=== PATIENT | male | born 1960 | race Caucasian/White ===

== ENCOUNTER 2019-10-19 23:40 | Inpatient (IN) | payer MEDICARE, SELFPAY ==
[2019-10-20] VITALS (23 sets, daily range): BP systolic 120–186; BP diastolic 75–133; PULSE 76–138; RESP 16–26; TEMP 36.6–37.1; O2SAT 91–100; BMI 24.8
[2019-10-20] MEDS: morphine 4 mg/mL SDV 1 mL IVP (05:29)
[2019-10-20] MEDS: sodium chloride 0.9% 1,000 ML 75 ML IV (05:30)
--- NOTE | 2019-10-20 07:59 | PM.HP ---
Providers/Chief Complaint Admitting Physician: Hira Madrigal MD Primary Care Provider: Alan Mcdonald MD Chief Complaint: APPENDICITIS History of Present Illness Stephan Boston is a 58 year old male who presented to the ER yesterday with weakness. Patient stated been having abdominal pain for the last 2 weeks but denies any nausea, vomiting fevers or chills. Patient states that he is incontinent and has had some loose stools. Patient also self catheterizes. He had a CVA at the age of 25 and has had multiple back surgeries resulting in limited mobility. Patient is not able to ambulate and use a motorized wheelchair. Review of Systems Const: Denies: fever, chills, change in weight or fatigue ENMT: Denies: painful swallowing Card: Denies: chest pain Resp: Denies: shortness of breath GI: Denies: abdominal pain or blood in stool : Denies: painful urination Skin/Breast: Denies: rash or non-healing lesion Neuro: Denies: seizure-like activity Xu/Lymph: Denies: easy bruising Medications/Allergies Home Medications Medication Instructions Recorded Confirmed Last Taken Type ascorbic acid (vitamin C) [Vitamin 1 g PO BID 10/20/19 10/20/19 1 Day Ago History C] ~10/19/19 baclofen 10 mg PO TID 10/20/19 10/20/19 1 Day Ago History ~10/19/19 furosemide [Lasix] 20 mg PO DAILY 10/20/19 10/20/19 1 Day Ago History ~10/19/19 gabapentin 600 mg PO TID 10/20/19 10/20/19 1 Day Ago History ~10/19/19 hydrocodone-acetaminophen 1 tab PO Q6H PRN 10/20/19 10/20/19 Unknown History lisinopril 10/20/19 1 Day Ago History ~10/19/19 unknown methenamine hippurate 1 g PO BID 10/20/19 10/20/19 1 Day Ago History ~10/19/19 Allergies Allergy/AdvReac Type Severity Reaction Status Date / Time Penicillins Allergy ALGY-Rash Verified 10/20/19 02:14 PFSH Acute PFSH: Statuses (acute, chronic, etc) shown below reflect problem list status as previously entered and may not be historically accurate Medical History (Updated 10/20/19 @ 10:31 by Hira Madrigal MD) Hepatitis C (Acute) Left ureteral calculus (Acute) Neurogenic bladder (Acute) Pyelonephritis (Acute) Self-catheterizes urinary bladder (Inactive) Urinary bladder calculus (Acute) Surgical History (Updated 10/20/19 @ 10:31 by Hira Madrigal MD) H/O cervical spine surgery (Acute) S/P lumbar fusion (Acute) S/P ureteral stent placement (Acute) Social History (Updated 10/20/19 @ 08:40 by Hira Madrigal MD) Smoking and tobacco status: heavy tobacco smoker cigarettes Packs smoked per day: 1.5 Alcohol intake: current Alcohol intake frequency: 0-2 Drinks per Day Alcohol type: beer Counseling given: Yes Substance/Drug Use: current Substance/Drug use frequency: few times a week Substance/Drug use type: Marijuana Counseling given: Yes Vitals/I&O/Wt Last Vital Signs Temp 98.5 F 10/20/19 05:36 Pulse 84 10/20/19 05:36 Resp 18 10/20/19 05:36 BP 133/75 10/20/19 05:36 Pulse Ox 95 10/20/19 05:36 10/19/19 10/20/19 10/20/19 22:59 06:59 14:59 Intake Total 32.5 / 32.5 Balance 32.5 / 32.5 Weight last 48 hrs Weight 71.809 kg Weight 69.853 kg Physical Exam Const: COMMON NORMALS: no apparent distress ORIENTATION/CONSCIOUSNESS: Yes oriented to person, Yes oriented to place and Yes oriented to time HENMT: HEAD & SCALP: normocephalic Eye: GENERAL EYE: normal appearance of both eyes Resp: AUSCULTATION: clear to auscultation bilaterally Cardio: COMMON NORMALS: S1 normal heart sound and S2 normal heart sound GI: INSPECTION: Yes other (Incarcerated umbilical hernia, nontender) PALPATION: Yes tender Details: RLQ and Yes hernia Neuro: SENSORIUM/ORIENTATION: Yes oriented to person, Yes oriented to place and Yes oriented to time Skin: COMMON NORMALS: no rashes or lesions noted GENERAL SKIN EXAM: no rashes or lesions noted Data Imaging^: CT Abd/Pel: Radiologist's impression: PROCEDURE INFORMATION: Exam: CT Abdomen And Pelvis With Contrast Exam date and time: 10/19/2019 9:22 PM Age: 58 years old Clinical indication: Other: Weakness; Prior surgery; Additional info: Abdominal pain TECHNIQUE: Imaging protocol: Computed tomography of the abdomen and pelvis with intravenous contrast. Total DLP: 756.91 mGy-cm Radiation optimization: All CT scans at this facility use at least one of these dose optimization techniques: automated exposure control; mA and/or kV adjustment per patient size (includes targeted exams where dose is matched to clinical indication); or iterative reconstruction. Contrast material: VISI; Contrast volume: 95 ml; Contrast route: IV; COMPARISON: CT Abdomen/Pelvis [facility] [id number] 02/16/2019 12:47 PM FINDINGS: Mediastinum: A small hiatal hernia is present. Liver: Unremarkable.No mass. Gallbladder and bile ducts: Normal. No calcified stones. No ductal dilation. Pancreas: Normal. No ductal dilation. Spleen: Normal. No splenomegaly. Adrenals: Normal. No mass. Kidneys and ureters: There is a 1.5 cm fluid density cyst lower pole left kidney. Stomach and bowel: Unremarkable. No obstruction. No mucosal thickening. Appendix: The appendix demonstrates marked diffuse distention, consistent with severe acute appendicitis. There is a periappendiceal abscess with marked adjacent wall thickening and inflammatory changes. Air bubbles are noted within the collection that measures 3.6 x 2.8 by 5.0 cm in size. This is best seen on image 50. Intraperitoneal space: No free air. No additional abscess. Vasculature: Unremarkable.No abdominal aortic aneurysm. Lymph nodes: Unremarkable.No enlarged lymph nodes. Bladder: There is nonspecific bladder wall thickening. This may be related to incomplete distention. Reproductive: Unremarkable as visualized. Bones/joints: Postoperative changes in the lower lumbar spine are noted. There is scoliosis convex to the left. Soft tissues: There are bilateral fat filled inguinal hernias. IMPRESSION: 1. Acute appendicitis. 2. Periappendiceal abscess. A&P Assessment and plan (1) Acute perforated appendicitis: This is a 58-year-old gentleman with history of CVA limited mobility who presents with generalized weakness and abdominal pain. His white count is normal but CT scan showed fluid collection adjacent to the appendix concerning for perforated appendicitis with appendicular abscess. 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
--- NOTE | 2019-10-20 09:48 | ANES.PREANES ---
Pre-Anesthetic Assessment Pre-Anesthetic Assessment: Height/Weight: Height 1.68 m Weight 71.809 kg Temp Pulse Resp BP Pulse Ox 97.8 F 81 16 163/96 93 10/20/19 09:39 10/20/19 09:39 10/20/19 09:39 10/20/19 09:39 10/20/19 09:39 Proposed Procedure: Operation Date: 10/20/19 10:00 Proposed Procedures p Laparoscopic Appendectomy(Not Applicable) - Hira Madrigal MD Social: Social History: Alcohol and Tobacco Exam: Pre-Anes Outpt Exam: alert, oriented x 3, clear to auscultation bilaterally and regular rate & rhythm Airway: Submandibular: WNL Cervical ROM: Other (very poor) MP: 3 Dentition: Chipped Additional comments: neck fusion : Comments: incontinent Musc/skel: Musc/skel: Lower Back Pain and Weakness Comments: 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 Anesthetic Plan: ASA status: III Anesthesia: General Risk of > 500 ml blood loss (7ml/kg in children): No Meds/Allergies Current Medications: Current Medications Generic Name Dose Route Start Last Admin Trade Name Freq PRN Reason Stop Dose Admin Sodium Chloride 1,000 mls @ 75 ml s/hr 10/20/19 02:15 10/20/19 05:56 Sodium Chloride 0.9% IV 75 mls/hr .[id number] LEENA Infusion Morphine Sulfate 4 mg 10/20/19 02:17 10/20/19 05:29 Morphine IVP 4 mg Q2H PRN Administration SEVERE PAIN PFSH Anesthesia PFSH: Medical History (Updated 10/20/19 @ 08:42 by Hira Madrigal MD) CVA (cerebral vascular accident) (Acute) Renal calculi (Acute) Surgical History (Updated 10/20/19 @ 08:42 by Hira Madrigal MD) Previous back surgery (Acute) Social History (Updated 10/20/19 @ 08:40 by Hira Madrigal MD) Smoking and tobacco status: heavy tobacco smoker cigarettes Packs smoked per day: 1.5 Alcohol intake: current Alcohol intake frequency: 0-2 Drinks per Day Alcohol type: beer Counseling given: Yes Substance/Drug Use: current Substance/Drug use frequency: few times a week Substance/Drug use type: Marijuana Counseling given: Yes Data Anesthesia Cardiac Studies: No Data to Display
[2019-10-20] MEDS: sodium chloride 0.9% 1,000 ML 30 ML IV (10:15)
[2019-10-20] MEDS: levofloxacin-dextrose 5 % 500 MG/100 ML PREMIX 100 MG IV (10:25)
[2019-10-20] MEDS: ipratropium 0.5 mg/2.5 mL Neb (11:53)
[2019-10-20] MEDS: fentaNYL 50 mcg/mL INJ 2mL IVP ×2 (12:14→12:19)
[2019-10-20] MEDS: ondansetron 2 mg/ML SDV 2 mL 4 MG IVP (12:14)
--- NOTE | 2019-10-20 12:28 | PM.OP ---
Operative Report Post-Operative Note: Date of procedure: 10/20/19 Preop Diagnosis: Acute perforated appendicitis with 5 cm intra-abdominal abscess Post-op diagnosis: same Post-op Findings: Base of the appendix was identified but the rest of the appendix could not be identified, adjacent intra-abdominal abscess identified Procedure Done: Laparoscopic appendectomy Drainage of intra-abdominal abscess Specimens removed/disposition: base of appendix Surgeon: Hira Madrigal Anesthesia: general Estimated blood loss (mL): 25 Condition: stable Disposition: PACU Operative Report: Procedure: The patient was taken to the Operating Room and intubated under general anesthesia after antibiotic had been administered. A Gallardo catheter was placed. Using a 15 blade, a 1-cm infraumbilical incision was made and using open Aneesh technique, the peritoneal cavity was entered. A 12mm port with balloon was placed and 14 mm of pneumoperitoneum was created and 10-mm 30 degree scope was introduced. Two separate 5mm ports were placed in the left and right lower quadrant under direct visualization. Using suction irrigation the cecum was gently peeled away from the abdominal wall and the ileum was peeled away. The base of the appendix was identified at the end of the tenia as the cecum was peeled away from the abdominal wall and rotated medially intra-abdominal abscess was identified and pus was aspirated.. An Endo FROYLAN stapler 45mm long 3.5mm blue load was introduced to divide the appendix at it's base. There was no bleeding noted and the staple line appeared intact. The right lower quadrant was irrigated with saline and an EndoCatch bag was introduced to remove the base of the appendix. A fecalith identified within the abscess cavity was also removed. Using 11 blade a stab incision was made in the right lower quadrant and a 10 Kiswahili flat LAUREN drain was introduced and placed in the abscess cavity and sutured with 2-0 Prolene suture. All three ports were removed under direct visualization and there was no bleeding noted on the port sites. The fascia at the umbilical port was closed using figure of eight 0-Vicryl sutures and subcutaneous tissue was approximated using 3-0 Vicryl and skin at all 3 port sites was closed using 4-0 Monocryl and surgical glue. 0.5% Marcaine was infiltrated at the port sites. The patient was transferred to recovery room in stable condition with a Gallardo catheter. 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
--- NOTE | 2019-10-20 13:30 | PM.PN ---
Vitals/I&O/Wt Last Vital Signs Temp 97.8 F 10/20/19 11:48 Pulse 135 H 10/20/19 11:48 Resp 16 10/20/19 11:48 BP 164/104 10/20/19 11:48 Pulse Ox 93 10/20/19 09:39 10/19/19 10/20/19 10/20/19 22:59 06:59 14:59 Intake Total 32.5 / 32.5 200 / 200 Output Total 1650 / 1650 Balance 32.5 / 32.5 -1450 / -1450 Weight last 48 hrs Weight 71.809 kg Weight 69.853 kg Physical Exam Urinary Catheter Management^: Gallardo: Cath Placed During This Visit: no A&P Assessment and plan (1) Acute perforated appendicitis: This is a 58-year-old gentleman with history of CVA limited mobility who presents with generalized weakness and abdominal pain. His white count is normal but CT scan showed fluid collection adjacent to the appendix concerning for perforated appendicitis with appendicular abscess. Plan for laparoscopic possible open appendectomy, drainage of intra-abdominal abscess Procedure risks and benefits have been discussed with the patient Status: Acute Code(s): K35.32 - Acute appendicitis with perforation and localized peritonitis, without abscess Coding Level of Care Code Acute Program Aide Group Work for [facility] Stephane Diagnoses Acute perforated appendicitis K35.32
--- NOTE | 2019-10-20 13:42 | PC.PT ---
Attempted PT eval. Patient nauseated s/p surgery. Will attempt in a.m.
[2019-10-20] MEDS: D5-NS 0.45% + KCL 20 mEq 20 MEQ/1,000 ML BAG 100 MEQ IV (13:46)
[2019-10-20] MEDS: HYDROcodone-acetaminophen 10-325 mg Tablet 1 TAB PO ×2 (13:46→21:53)
[2019-10-20] MEDS: famotidine 20 mg/2 mL INJ IVP (13:47)
[2019-10-20] MEDS: gabapentin 300 mg Capsule 600 MG PO ×2 (14:06→21:53)
[2019-10-20] MEDS: baclofen 10 mg Tablet PO ×2 (14:06→21:53)
[2019-10-20] MEDS: FUROsemide 20 mg Tablet PO (15:49)
[2019-10-20] MEDS: docusate sodium 100 mg Capsule PO (17:58)
[2019-10-20] MEDS: sennosides 8.6 mg Tablet 17.2 MG PO (21:53)
[2019-10-21] VITALS (8 sets, daily range): BP systolic 108–136; BP diastolic 72–83; PULSE 77–97; RESP 15–19; TEMP 36.8–37.8; O2SAT 18–99
[2019-10-21] MEDS: D5-NS 0.45% + KCL 20 mEq 20 MEQ/1,000 ML BAG 100 MEQ IV ×2 (00:31→08:04)
[2019-10-21] MEDS: famotidine 20 mg/2 mL INJ IVP ×2 (02:18→15:26)
--- NOTE | 2019-10-21 04:08 | PC.NURSE ---
Noticed Morphine that was given earlier did not save on EMAR when charting;Did manual barcode and scan at this time to record administration with witness Mounika DE LA ROSA.
[2019-10-21] MEDS: enoxaparin 40 mg/0.4 mL Syringe SUBCUT (05:19)
[2019-10-21] MEDS: HYDROcodone-acetaminophen 10-325 mg Tablet 1 TAB PO ×3 (05:20→18:43)
[2019-10-21 05:30] LABS: Basophils # 0.1 10^3/uL (0.0-0.1); Basophils % 0.4 %; Eosinophils # 0.1 10^3/uL (0.0-0.8); Eosinophils % 0.9 %; Hematocrit 36.7 % (42.0-52.0); Hemoglobin 12.2 g/dL (11.7-16.6); Lymphocytes # 1.5 10^3/uL (0.8-4.8); Lymphocytes % 12.5 %; Mean Corpuscular HGB Conc 33.2 g/dL (30.0-36.0); Mean Corpuscular Hemoglobin 31.4 pg (28.0-34.0); Mean Corpuscular Volume 94.3 fL (80-94); Mean Platelet Volume 8.6 fL (7.4-10.4); Monocytes # 0.6 10^3/uL (0.2-0.9); Monocytes % 5.5 %; Neutrophils # 9.2 10^3/uL (1.8-7.7); Neutrophils % 78.6 %; Nucleated Red Blood Cells % 0 %; Platelet Count 276 10^3/cmm (130-400); Red Blood Count 3.89 10^6/uL (4.1-5.3); Red Cell Distribution Width 12.8 % (12.1-15.1); White Blood Count 11.6 10^3/uL (4.0-10.0)
[2019-10-21 05:34] LABS: Add RBC Morph No
[2019-10-21 05:46] LABS: Anion Gap 13.2 (5-19); Blood Urea Nitrogen 6 mg/dL (6-20); Calcium 9.3 mg/Dl (8.6-10.0); Carbon Dioxide 24 mmol/L (22-29); Chloride 98 mmol/L (98-107); Glomerular Filtration Rate 116.2 mL/min (90-130); Glucose 136 mg/dL (74-109); Potassium 4.2 mmol/L (3.5-5.1); Sodium 131 mmol/L (136-145)
[2019-10-21] MEDS: morphine 4 mg/mL SDV 1 mL 2 MG IVP ×4 (07:59→15:25)
[2019-10-21] MEDS: docusate sodium 100 mg Capsule PO ×2 (08:03→17:39)
[2019-10-21] MEDS: gabapentin 300 mg Capsule 600 MG PO ×3 (08:03→20:39)
[2019-10-21] MEDS: FUROsemide 20 mg Tablet PO (08:04)
[2019-10-21] MEDS: baclofen 10 mg Tablet PO ×3 (08:04→20:40)
--- NOTE | 2019-10-21 08:53 | PC.NURSE ---
Patient stated that he did not want a bath today.
[2019-10-21] MEDS: levofloxacin-dextrose 5 % 500 MG/100 ML PREMIX 100 MG IV (10:40)
--- NOTE | 2019-10-21 16:11 | P.PN_ITS ---
Vitals/I&O/Wt Last Vital Signs Temp 99.1 F 10/21/19 15:10 Pulse 83 10/21/19 15:10 Resp 16 10/21/19 15:25 BP 136/80 10/21/19 15:10 Pulse Ox 97 10/21/19 15:10 10/21/19 10/21/19 10/21/19 06:59 14:59 22:59 Intake Total 2061.667 / 3001.667 1369.999 / 1369.999 Output Total 460 / 3810 5 / 1105 1100 / 1105 Balance 1601.667 / -485.385 9277.999 / 264.999 -1100 / 264.999 Weight last 48 hrs Weight 168 lb Weight 165 lb Weight 158 lb 5 oz Weight 154 lb Physical Exam Narrative: EXAM NARRATIVE: Abdomen: Soft, slightly distended, nontender, incision clean dry and intact, patient has ecchymosis around the umbilical incision. LAUREN drain output is serosanguineous A&P Assessment and plan (1) Postoperative ileus: Awaiting resolution of ileus Continue on full liquid diet advised to restrict oral intake Continue stool softeners We will add lactulose 15 cc p.o. twice daily Status: Acute Code(s): K91.89 - Other postprocedural complications and disorders of digestive system; K56.7 - Ileus, unspecified (2) Neurogenic bladder: Leave Gallardo catheter in since patient usually self catheterizes and he will find it difficult at this point Status: Acute Code(s): N31.9 - Neuromuscular dysfunction of bladder, unspecified (3) Acute perforated appendicitis: Continue LAUREN drain to bulb suction Continue IV Levaquin and Flagyl Check CBC tomorrow morning Status: Acute Code(s): K35.32 - Acute appendicitis with perforation and localized peritonitis, without abscess Attestations Medical Necessity Statement*: Perforated appendicitis with postoperative requiring continuedInpatient stay for IV antibiotics and resolution of ileus Coding Level of Care Code 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
[2019-10-21] MEDS: D5-NS 0.45% + KCL 20 mEq 20 MEQ/1,000 ML BAG 30 MEQ IV (18:40)
[2019-10-21] MEDS: sennosides 8.6 mg Tablet 17.2 MG PO (20:40)
[2019-10-22] VITALS (7 sets, daily range): BP systolic 125–171; BP diastolic 54–92; PULSE 86–103; RESP 17–21; TEMP 36.8–37.7; O2SAT 93–96
[2019-10-22] MEDS: HYDROcodone-acetaminophen 10-325 mg Tablet 1 TAB PO ×4 (00:20→20:10)
[2019-10-22] MEDS: famotidine 20 mg/2 mL INJ IVP ×2 (01:15→13:43)
[2019-10-22 05:53] LABS: Basophils # 0.1 10^3/uL (0.0-0.1); Basophils % 0.5 %; Eosinophils # 0.2 10^3/uL (0.0-0.8); Eosinophils % 1.7 %; Hematocrit 35.3 % (42.0-52.0); Hemoglobin 11.8 g/dL (11.7-16.6); Lymphocytes # 1.3 10^3/uL (0.8-4.8); Lymphocytes % 13.8 %; Mean Corpuscular HGB Conc 33.4 g/dL (30.0-36.0); Mean Corpuscular Hemoglobin 31.6 pg (28.0-34.0); Mean Corpuscular Volume 94.4 fL (80-94); Mean Platelet Volume 8.6 fL (7.4-10.4); Monocytes # 0.7 10^3/uL (0.2-0.9); Monocytes % 7.1 %; Neutrophils # 6.8 10^3/uL (1.8-7.7); Neutrophils % 74.7 %; Nucleated Red Blood Cells % 0 %; Platelet Count 241 10^3/cmm (130-400); Red Blood Count 3.74 10^6/uL (4.1-5.3); White Blood Count 9.2 10^3/uL (4.0-10.0)
[2019-10-22 06:32] LABS: Anion Gap 15.1 (5-19); Blood Urea Nitrogen 4 mg/dL (6-20); Calcium 9.5 mg/Dl (8.6-10.0); Carbon Dioxide 23 mmol/L (22-29); Chloride 100 mmol/L (98-107); Glomerular Filtration Rate 116.2 mL/min (90-130); Glucose 109 mg/dL (74-109); Potassium 4.1 mmol/L (3.5-5.1); Sodium 134 mmol/L (136-145)
[2019-10-22] MEDS: enoxaparin 40 mg/0.4 mL Syringe SUBCUT (06:36)
[2019-10-22] MEDS: morphine 4 mg/mL SDV 1 mL 2 MG IVP ×2 (07:28→11:50)
--- NOTE | 2019-10-22 09:49 | PC.SOCIAL ---
IMM Update Pg 2 of IMM given and explained to patient and , both voiced understanding. Copy provided. Original signed, dated, and timed and placed in chart.
[2019-10-22] MEDS: FUROsemide 20 mg Tablet PO (09:55)
[2019-10-22] MEDS: gabapentin 300 mg Capsule 600 MG PO ×3 (09:55→20:11)
[2019-10-22] MEDS: docusate sodium 100 mg Capsule PO ×2 (09:56→19:11)
[2019-10-22] MEDS: baclofen 10 mg Tablet PO ×3 (09:56→20:11)
[2019-10-22] MEDS: levofloxacin-dextrose 5 % 500 MG/100 ML PREMIX 100 MG IV (10:00)
--- NOTE | 2019-10-22 13:07 | PM.PN ---
Subjective Subjective: Interval history: Patient feels a bit distended, no nausea or vomiting, tolerating full liquid diet, passing flatus but no BM yet Vitals/I&O/Wt Last Vital Signs Temp 99 F 10/22/19 11:31 Pulse 103 H 10/22/19 11:31 Resp 18 10/22/19 11:50 BP 171/92 10/22/19 11:31 Pulse Ox 93 10/22/19 11:31 10/21/19 10/22/19 10/22/19 22:59 06:59 14:59 Intake Total 770 / 2917.499 777.5 / 2917.499 480 / 480 Output Total 1605 / 3260 1650 / 3260 475 / 475 Balance -835 / -342.501 -872.5 / -342.501 5 / 5 Weight last 48 hrs Weight 169 lb 6.4 oz Weight 168 lb Weight 165 lb Physical Exam Narrative: EXAM NARRATIVE: Soft, minimally tender, minimally distended, incision clean dry and intact, LAUREN drain output is serosanguineous Continue Gallardo catheter in place Urinary Catheter Management^: Gallardo: Cath Placed During This Visit: no A&P Assessment and plan (1) Postoperative ileus: Continue full liquid diet Continue senna and Colace Awaiting return of bowel function Status: Acute Code(s): K91.89 - Other postprocedural complications and disorders of digestive system; K56.7 - Ileus, unspecified (2) Acute perforated appendicitis: Continue IV Levaquin and Flagyl Leukocytosis trending down Status: Acute Code(s): K35.32 - Acute appendicitis with perforation and localized peritonitis, without abscess Attestations Medical Necessity Statement*: Patient has postop ileus and therefore requires continued inpatient care to ensure resolution of ileus Coding Level of Care Code Acute Manager Combination for [facility] Diagnoses Postoperative ileus K91.89; K56.7 Acute perforated appendicitis K35.32
[2019-10-22] MEDS: pneumococcal (23 valent) SDV 0.5 mL IM (19:11)
[2019-10-22] MEDS: sennosides 8.6 mg Tablet 17.2 MG PO (20:11)
[2019-10-23] MEDS: famotidine 20 mg/2 mL INJ IVP ×2 (02:04→14:26)
[2019-10-23] MEDS: HYDROcodone-acetaminophen 10-325 mg Tablet 1 TAB PO ×4 (02:05→21:52)
[2019-10-23 03:00] VITALS: BP 137/84; PULSE 94; RESP 17; TEMP 36.8; O2SAT 93
[2019-10-23] MEDS: enoxaparin 40 mg/0.4 mL Syringe SUBCUT (05:39)
[2019-10-23] MEDS: D5-NS 0.45% + KCL 20 mEq 20 MEQ/1,000 ML BAG 30 MEQ IV ×2 (05:39→18:08)
[2019-10-23 06:12] LABS: Basophils % 0.5 %; Eosinophils # 0.4 10^3/uL (0.0-0.8); Eosinophils % 4.3 %; Hematocrit 36.3 % (42.0-52.0); Hemoglobin 12.2 g/dL (11.7-16.6); Lymphocytes # 1.1 10^3/uL (0.8-4.8); Lymphocytes % 13.3 %; Mean Corpuscular HGB Conc 33.6 g/dL (30.0-36.0); Mean Corpuscular Hemoglobin 32.4 pg (28.0-34.0); Mean Corpuscular Volume 96.5 fL (80-94); Mean Platelet Volume 8.4 fL (7.4-10.4); Monocytes # 0.6 10^3/uL (0.2-0.9); Monocytes % 7.5 %; Neutrophils % 71.2 %; Nucleated Red Blood Cells % 0 %; Platelet Count 248 10^3/cmm (130-400); Red Blood Count 3.76 10^6/uL (4.1-5.3); Red Cell Distribution Width 12.7 % (12.1-15.1); White Blood Count 8.4 10^3/uL (4.0-10.0)
[2019-10-23 06:44] LABS: Anion Gap 16.4 (5-19); Blood Urea Nitrogen 4 mg/dL (6-20); Calcium 9.7 mg/Dl (8.6-10.0); Carbon Dioxide 23 mmol/L (22-29); Chloride 95 mmol/L (98-107); Glomerular Filtration Rate 116.2 mL/min (90-130); Glucose 118 mg/dL (74-109); Potassium 3.4 mmol/L (3.5-5.1); Sodium 131 mmol/L (136-145)
[2019-10-23 07:00] VITALS: BP 170/90; PULSE 98; RESP 18; O2SAT 93
[2019-10-23] MEDS: ondansetron 2 mg/ML SDV 2 mL 4 MG IVP (08:11)
[2019-10-23] MEDS: baclofen 10 mg Tablet PO ×3 (08:14→21:52)
[2019-10-23] MEDS: gabapentin 300 mg Capsule 600 MG PO ×3 (08:14→21:51)
[2019-10-23] MEDS: docusate sodium 100 mg Capsule PO ×2 (08:14→17:10)
[2019-10-23] MEDS: levofloxacin-dextrose 5 % 500 MG/100 ML PREMIX 100 MG IV (10:15)
[2019-10-23 11:00] VITALS: BP 131/80; PULSE 70; RESP 18; TEMP 36.8; O2SAT 95
--- NOTE | 2019-10-23 11:27 | XRR_ITS ---
PROCEDURE INFORMATION: Exam: XR Abdomen, 2 Views Exam date and time: 10/23/2019 12:04 PM Age: 58 years old Clinical indication: Other: Distended and pain; Prior surgery; Surgery date: 3-7 days post-operative; Surgery type: Appy; Additional info: S/P appy distended TECHNIQUE: Imaging protocol: XR of the abdomen. Frontal supine and upright views of the abdomen. Views: 2 Views. COMPARISON: US Renal Kidney Structu* [id number] 03/09/2019 10:54:06 AM CR XR KUB [id number] 02/10/2019 6:40 AM FINDINGS: Gastrointestinal tract: Small and large bowel dilatation. No obstruction. Intraperitoneal space: Normal. No free air. Vasculature: Vascular calcifications. Bones/joints: Post operative changes in lumbar spine status post fusion. XR/XR abdomen min 2V [id number] IMPRESSION: Nonspecific bowel dilatation consistent with ileus.
--- NOTE | 2019-10-23 11:28 | P.PN_ITS ---
Subjective Subjective: Interval history: Patient had one episode of emesis today received a dose of Zofran and since then has been feeling okay. Has some abdominal pain but denies any nausea or vomiting. Passing small amount of flatus but no BM Vitals/I&O/Wt Last Vital Signs Temp 98.2 F 10/23/19 03:00 Pulse 98 10/23/19 07:00 Resp 18 10/23/19 07:00 BP 170/90 10/23/19 07:00 Pulse Ox 93 10/23/19 07:00 10/22/19 10/23/19 10/23/19 22:59 06:59 14:59 Intake Total 840 / 1992.5 672.5 / 1992.5 239 / 239 Output Total 1200 / 3830 2155 / 3830 30 / 30 Balance -360 / -1837.5 -1482.5 / -1837.5 209 / 209 Weight last 48 hrs Weight 169 lb 6.4 oz Physical Exam GI: OTHER: Soft, mildly distended, tender, incision clean dry and intact, LAUREN drain was removed Urinary Catheter Management^: Gallardo: Cath Placed During This Visit: no A&P Assessment and plan (1) Postoperative ileus: Keep n.p.o. 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
[2019-10-23] MEDS: Fleet Enema 133 mL Enema 118 ML PR ×2 (14:35→17:11)
[2019-10-23 15:00] VITALS: BP 161/88; PULSE 90; RESP 18; TEMP 37.1; O2SAT 96
[2019-10-23] MEDS: lisinopril 20 mg Tablet PO (17:10)
[2019-10-23 20:02] VITALS: BP 100/67; PULSE 78; RESP 17; TEMP 36.9; O2SAT 96
[2019-10-23] MEDS: sennosides 8.6 mg Tablet 17.2 MG PO (21:51)
[2019-10-24] VITALS: BP 98/62; PULSE 68; RESP 17; TEMP 37.1; O2SAT 93
[2019-10-24] MEDS: famotidine 20 mg/2 mL INJ IVP ×2 (03:01→14:20)
[2019-10-24 04:00] VITALS: BP 110/65; PULSE 75; RESP 18; TEMP 36.5; O2SAT 97
[2019-10-24] MEDS: HYDROcodone-acetaminophen 10-325 mg Tablet 1 TAB PO (05:50)
[2019-10-24] MEDS: enoxaparin 40 mg/0.4 mL Syringe SUBCUT (05:51)
[2019-10-24 07:37] VITALS: BP 108/64; PULSE 76; RESP 22; TEMP 36.8; O2SAT 98
--- NOTE | 2019-10-24 08:12 | PM.PN ---
Subjective Subjective: Interval history: Patient passing flatus but no nausea or vomiting. Abdominal x-ray performed yesterday showed postop ileus. Patient has been on ice chips and has not had any further episodes of emesis. He feels distended and complains of some upper abdominal pain Medications: Reviewed: Yes Vitals/I&O/Wt Last Vital Signs Temp 98.3 F 10/24/19 07:37 Pulse 76 10/24/19 07:37 Resp 22 H 10/24/19 07:37 BP 108/64 10/24/19 07:37 Pulse Ox 98 10/24/19 07:37 10/23/19 10/24/19 10/24/19 22:59 06:59 14:59 Intake Total 226 / 939.5 353 / 939.5 Output Total 635 / 815 150 / 815 Balance -409 / 124.5 203 / 124.5 Weight last 48 hrs Weight 169 lb 6.4 oz Physical Exam Narrative: EXAM NARRATIVE: Soft, distended, minimally tender, incision clean dry and intact : MALE GROIN/PERINEUM EXAM: Yes other (Gallardo catheter in place) Urinary Catheter Management^: Gallardo: Cath Placed During This Visit: no A&P Assessment and plan (1) Postoperative ileus: Continue n.p.o. with ice chips Add lactulose 15 cc p.o. twice daily 1 bottle of magnesium citrate today Discontinue opioids, start Toradol Status: Acute Code(s): K91.89 - Other postprocedural complications and disorders of digestive system; K56.7 - Ileus, unspecified (2) Acute perforated appendicitis: Status: Acute Code(s): K35.32 - Acute appendicitis with perforation and localized peritonitis, without abscess (3) Neurogenic bladder: Continue with Gallardo catheter since patient has to self catheterize Status: Acute Code(s): N31.9 - Neuromuscular dysfunction of bladder, unspecified Attestations Medical Necessity Statement*: Acute perforated appendicitis with postop ileus requiring continued inpatient stay to ensure resolution Coding Level of Care Code 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
[2019-10-24] MEDS: lactulose oral liq 20 gm/30 mL UDC 10 GM PO ×2 (09:20→20:30)
[2019-10-24] MEDS: lisinopril 20 mg Tablet PO ×2 (09:21→17:31)
[2019-10-24] MEDS: baclofen 10 mg Tablet PO ×3 (09:21→20:32)
[2019-10-24] MEDS: FUROsemide 20 mg Tablet PO (09:21)
[2019-10-24] MEDS: gabapentin 300 mg Capsule 600 MG PO ×3 (09:21→20:34)
[2019-10-24] MEDS: magnesium citrate Btl 296 mL PO (09:21)
[2019-10-24] MEDS: docusate sodium 100 mg Capsule PO ×2 (09:22→17:30)
[2019-10-24] MEDS: levofloxacin-dextrose 5 % 500 MG/100 ML PREMIX 100 MG IV (09:22)
[2019-10-24 11:21] VITALS: BP 98/64; PULSE 75; RESP 18; TEMP 36.4; O2SAT 96
--- NOTE | 2019-10-24 11:25 | PC.SOCIAL ---
IMM Update Pg 2 of IMM given and explained to patient who voiced understanding. Signed/dated/timed and placed in chart. Placed in chart, copy provided to patient.
[2019-10-24] MEDS: D5-NS 0.45% + KCL 20 mEq 20 MEQ/1,000 ML BAG 30 MEQ IV (14:23)
[2019-10-24 15:24] VITALS: BP 125/81; PULSE 65; RESP 22; TEMP 36.4; O2SAT 94
[2019-10-24 20:00] VITALS: BP 103/69; PULSE 65; RESP 20; TEMP 36.7; O2SAT 99
[2019-10-24] MEDS: ketorolac 10 mg Tablet PO (20:33)
[2019-10-24] MEDS: sennosides 8.6 mg Tablet 17.2 MG PO (20:34)
[2019-10-25] VITALS: BP 104/68; PULSE 65; RESP 18; TEMP 36.8; O2SAT 94
[2019-10-25] MEDS: famotidine 20 mg/2 mL INJ IVP ×2 (02:07→14:07)
[2019-10-25 04:00] VITALS: BP 101/62; PULSE 59; RESP 17; TEMP 36.9; O2SAT 95
--- NOTE | 2019-10-25 06:08 | XRR_ITS ---
PROCEDURE INFORMATION: Exam: XR Abdomen, 2 Views Exam date and time: 10/25/2019 12:00 AM Age: 58 years old Clinical indication: Condition or disease; Other: Ileus TECHNIQUE: Imaging protocol: XR of the abdomen. Frontal supine and upright views of the abdomen. Views: 2 Views. COMPARISON: CR XR abdomen min 2V [id number] 10/23/2019 12:15 PM FINDINGS: Gastrointestinal tract: Scattered bowel gas without significant gaseous dilatation or air-fluid levels. Intraperitoneal space: Normal. No free air. Vasculature: Pelvic vascular calcifications. Bones/joints: Posterior bryce and pedicle screw fixation the lower 3 lumbar segments. Degenerative change of the spine. Osteopenia. XR/XR abdomen min 2V [id number] IMPRESSION: Nonspecific abdomen. Mild reactive ileus.
[2019-10-25 06:12] LABS: Basophils % 0.6 %; Eosinophils # 0.2 10^3/uL (0.0-0.8); Eosinophils % 2.8 %; Hematocrit 33.8 % (42.0-52.0); Hemoglobin 11.4 g/dL (11.7-16.6); Lymphocytes # 1.1 10^3/uL (0.8-4.8); Lymphocytes % 16.7 %; Mean Corpuscular HGB Conc 33.7 g/dL (30.0-36.0); Mean Corpuscular Hemoglobin 31.3 pg (28.0-34.0); Mean Corpuscular Volume 92.9 fL (80-94); Mean Platelet Volume 8.9 fL (7.4-10.4); Monocytes # 0.5 10^3/uL (0.2-0.9); Monocytes % 7.9 %; Neutrophils # 4.4 10^3/uL (1.8-7.7); Nucleated Red Blood Cells % 0 %; Platelet Count 254 10^3/cmm (130-400); Red Blood Count 3.64 10^6/uL (4.1-5.3); Red Cell Distribution Width 12.3 % (12.1-15.1); White Blood Count 6.4 10^3/uL (4.0-10.0)
[2019-10-25] MEDS: enoxaparin 40 mg/0.4 mL Syringe SUBCUT (06:35)
[2019-10-25 06:36] LABS: Anion Gap 14.7 (5-19); Blood Urea Nitrogen 8 mg/dL (6-20); Calcium 9.6 mg/Dl (8.6-10.0); Carbon Dioxide 26 mmol/L (22-29); Chloride 96 mmol/L (98-107); Glomerular Filtration Rate 99.6 mL/min (90-130); Glucose 101 mg/dL (74-109); Potassium 3.7 mmol/L (3.5-5.1); Sodium 133 mmol/L (136-145)
[2019-10-25 08:00] VITALS: BP 144/84; PULSE 73; RESP 18; TEMP 36.7; O2SAT 96
[2019-10-25] MEDS: ketorolac 10 mg Tablet PO (08:54)
[2019-10-25] MEDS: docusate sodium 100 mg Capsule PO (08:55)
[2019-10-25] MEDS: baclofen 10 mg Tablet PO ×2 (08:55→14:07)
[2019-10-25] MEDS: FUROsemide 20 mg Tablet PO (08:55)
[2019-10-25] MEDS: gabapentin 300 mg Capsule 600 MG PO ×2 (08:55→14:07)
[2019-10-25] MEDS: lisinopril 20 mg Tablet PO (08:55)
[2019-10-25] MEDS: levofloxacin-dextrose 5 % 500 MG/100 ML PREMIX 100 MG IV (10:31)
[2019-10-25 11:54] VITALS: BP 122/78; PULSE 67; RESP 16; TEMP 36.5; O2SAT 95
--- NOTE | 2019-10-25 13:13 | PM.PN ---
Subjective Subjective: Interval history: Patient had a large bowel movement, tolerating full liquid diet, denies any nausea or vomiting Vitals/I&O/Wt Last Vital Signs Temp 97.7 F 10/25/19 11:54 Pulse 67 10/25/19 11:54 Resp 16 10/25/19 11:54 BP 122/78 10/25/19 11:54 Pulse Ox 95 10/25/19 11:54 10/24/19 10/25/19 10/25/19 22:59 06:59 14:59 Output Total 650 / 1550 650 / 1550 Balance -650 / -1203 -650 / -1203 Physical Exam Narrative: EXAM NARRATIVE: Soft, nontender, nondistended incisions healing well Urinary Catheter Management^: Gallardo: Cath Placed During This Visit: no A&P Assessment and plan (1) Postoperative ileus: Resolved, advance diet as tolerated, discharged to [facility] Status: Resolved Code(s): K91.89 - Other postprocedural complications and disorders of digestive system; K56.7 - Ileus, unspecified (2) S/P laparoscopic appendectomy: Complete 5 more days of oral Levaquin and Flagyl Status: Acute Code(s): Z90.49 - Acquired absence of other specified parts of digestive tract (3) Neurogenic bladder: DC Gallardo catheter, continue with self-catheterization Status: Chronic Code(s): N31.9 - Neuromuscular dysfunction of bladder, unspecified Attestations Medical Necessity Statement*: Postop ileus resolved DC home today Coding Level of Care Code 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
--- NOTE | 2019-10-25 13:15 | PM.DCS ---
Discharge Providers Date of Admission: 10/19/19 23:40 Date of Discharge: 10/25/19 Attending Provider at Admission: Hira Madrigal MD Attending Provider at Discharge: Hira Madrigal MD Primary Care Provider: Alan Mcdonald MD Diagnoses at Discharge Discharge Diagnosis (1) Postoperative ileus: Status: Resolved (2) S/P laparoscopic appendectomy: Status: Acute Problem details: Complete 5 more days of oral Levaquin and Flagyl (3) Neurogenic bladder: Status: Chronic Problem details: Continue self-catheterization Reason for Visit Reason for Visit: Reason For Visit: APPENDICITIS Hospital Course Hospital Course: The patient was admitted to the hospital and started on IV antibiotics. He underwent laparoscopic appendectomy with drainage of intra-abdominal abscess. On day 3 his drain was removed since his LAUREN output was minimal. Patient had postop ileus resulting in abdominal distention and one episode of emesis which subsequently resolved by day 6. At time of discharge he was tolerating liquid diet he had large bowel movements and his abdominal distention had improved. His vital signs are stable and his incision was clean dry and intact Physical Exam Narrative: EXAM NARRATIVE: Soft nontender nondistended incisions healing well Urinary Catheter Management^: Gallardo: Cath Placed During This Visit: no Discharge Data Data Completed and Pending: Completed Studies During Hospitalization Category Date Time Status XR abdomen min 2V [id number] Routine Exams 10/23/19 11:27 Completed XR abdomen min 2V [id number] Routine Exams 10/25/19 06:08 Completed Pending at discharge Category Date Time Status Pathology: Surgic al [PTH] Routine Pth 10/20/19 11:34 Received Labs from last 24 hours 10/25/19 10/25/19 05:42 05:42 WBC 6.4 RBC 3.64 L Hgb 11.4 L Hct 33.8 L MCV 92.9 MCH 31.3 MCHC 33.7 RDW 12.3 Plt Count 254 MPV 8.9 Neut % (Auto) 69.0 Lymph % (Auto) 16.7 Mcduffie % (Auto) 7.9 Eos % (Auto) 2.8 Baso % (Auto) 0.6 Neut # (Auto) 4.4 Lymph # (Auto) 1.1 Mcduffie # (Auto) 0.5 Eos # (Auto) 0.2 Baso # (Auto) 0.0 Nucleated RBC % (a uto) 0 Nucleated RBCs # 0.0 Sodium 133 L Potassium 3.7 Chloride 96 L Carbon Dioxide 26 Anion Gap 14.7 BUN 8 Creatinine 0.8 GFR Calculation 99.6 Glucose 101 Calcium 9.6 Vitals: Last Vital Signs Temp 97.7 F 10/25/19 11:54 Pulse 67 10/25/19 11:54 Resp 16 10/25/19 11:54 BP 122/78 10/25/19 11:54 Pulse Ox 95 10/25/19 11:54 Discharge Plan Discharge Patient Disposition: Xfer SNF Condition: Stable Prescriptions: New Levaquin 750 mg tablet 750 mg PO DAILY 5 Days RF: 0 Flagyl 500 mg tablet 500 mg PO Q8H 5 Days Qty: 15 RF: 0 lactulose 10 gram/15 mL solution 15 ml PO BID Qty: 237 RF: 2 Continued hydrocodone-acetaminophen 10-325 mg Tablet 1 tab PO Q6H PRN (Reason: Pain) RF: 0 baclofen 10 mg Tablet 10 mg PO TID RF: 0 gabapentin 600 mg Tablet 600 mg PO TID RF: 0 methenamine hippurate 1 gram Tablet 1 g PO BID RF: 0 furosemide [Lasix] 20 mg Tablet 20 mg PO DAILY RF: 0 ascorbic acid (vitamin C) [Vitamin C] 1,000 mg Tablet 1 g PO BID RF: 0 lisinopril 20 mg PO BID RF: 0 Discharge Orders: Discharge Order (Routine); Ordered 10/25/19 Ordered By: Hira Madrigal Referrals: Hira Madrigal MD [Physician] - 1 week Discharge Diet: Advance as tolerated Activity Restrictions/Additional Instructions: 1. Activity as tolerated 2. Ok to shower 3. Remove surgical glue dressing in 7-10 days. 4. Advised to return to ER or contact my office if there are any signs of infection like, increasing pain, fevers, chills, redness or drainage of pus. Discharge Attestations Time Spent in Discharge Care*: less than 30 min Quality Metrics Clinical Quality Measures During this hospital stay, did patient experience: None Coding Level of Care Code Acute Clinical Neuropsychologist for Chg Fwd Diagnoses Postoperative ileus K91.89; K56.7 S/P laparoscopic appendectomy Z90.49 Neurogenic bladder N31.9
--- NOTE | 2019-10-25 15:28 | PC.NURSE ---
Report called to Nahum HARO at [facility]. Gallardo cath and IV cath removed intact.
[2019-10-25 15:46] VITALS: RESP 16; TEMP 36.5; O2SAT 95
== END 2019-10-25 15:47 | disposition skilled nursing facility (03) | DRG 339 ==
PROVIDERS: Admitting Provider Surgery; PCP Family Medicine; Visit Provider Surgery
PROC: 0DTJ4ZZ Resection of Appendix, Percutaneous Endoscopic Approach (ICD-10-PCS; CPT 44970; principal; 2019-10-20 10:00)
DX: K35.32 Acute appendicitis with perforation, localized peritonitis, and gangrene, without abscess (principal); K56.7 Ileus, unspecified; B17.10 Acute hepatitis C without hepatic coma; N20.1 Calculus of ureter; L02.211 Cutaneous abscess of abdominal wall; N31.9 Neuromuscular dysfunction of bladder, unspecified; Z86.73 Personal history of transient ischemic attack (TIA), and cerebral infarction without residual deficits; F17.210 Nicotine dependence, cigarettes, uncomplicated; N21.0 Calculus in bladder; Z96.0 Presence of urogenital implants; F10.10 Alcohol abuse, uncomplicated; F12.10 Cannabis abuse, uncomplicated
CPT/HCPCS: 36415; 36416; 74019; 74177; 80048; 80053; 83690; 85025; 88304; 90732; 96361; 96365; 96372; 96375; 97161; 99221; 99285; A7015; J1650; J1956; J2270; J2405; J2704; J2710; J3010; J3490; J7030; J7611; J7644; Q9967; S0030

== ENCOUNTER → 2019-10-19 | Emergency (ER) | payer SELFPAY | PROVIDERS: Emergency Provider Emergency Medicine; Family Provider Family Medicine; Visit Provider Emergency Medicine | DX: K35.80 Unspecified acute appendicitis (principal); Z86.73 Personal history of transient ischemic attack (TIA), and cerebral infarction without residual deficits; F17.210 Nicotine dependence, cigarettes, uncomplicated; Z88.0 Allergy status to penicillin | CPT/HCPCS: 74177; 80053; 83690; 85025; 96361; 96365; 99285; Q9967 ==

== ENCOUNTER 2019-10-27 09:58 | Outpatient (RCR) | payer OTHER, SELFPAY ==
[2019-10-27 10:14] LABS: Basophils # 0.1 10^3/uL (0.0-0.1); Basophils % 0.9 %; Eosinophils # 0.2 10^3/uL (0.0-0.8); Eosinophils % 2.5 %; Lymphocytes # 1.2 10^3/uL (0.8-4.8); Lymphocytes % 14.5 %; Mean Corpuscular HGB Conc 33.3 g/dL (30.0-36.0); Mean Corpuscular Hemoglobin 31.5 pg (28.0-34.0); Mean Corpuscular Volume 94.5 fL (80-94); Mean Platelet Volume 9.2 fL (7.4-10.4); Monocytes # 0.8 10^3/uL (0.2-0.9); Monocytes % 8.9 %; Neutrophils # 5.9 10^3/uL (1.8-7.7); Neutrophils % 70.4 %; Nucleated Red Blood Cells % 0 %; Platelet Count 305 10^3/cmm (130-400); Red Blood Count 3.81 10^6/uL (4.1-5.3); Red Cell Distribution Width 12.6 % (12.1-15.1); White Blood Count 8.4 10^3/uL (4.0-10.0)
[2019-10-27 11:14] LABS: Alanine Aminotransferase 23 U/L (0-41); Albumin Level 3.7 g/dL (3.5-5.2); Alkaline Phosphatase 76 IU/L (40-130); Anion Gap 16.7 (5-19); Aspartate Amino Transferase 33 U/L (0-40); Blood Urea Nitrogen 7 mg/dL (6-20); Calcium 9.5 mg/Dl (8.6-10.0); Carbon Dioxide 25 mmol/L (22-29); Chloride 97 mmol/L (98-107); Globulin 2.3 g/dL (1.3-4.6); Glomerular Filtration Rate 99.6 mL/min (90-130); Glucose 92 mg/dL (74-109); Potassium 3.7 mmol/L (3.5-5.1); Sodium 135 mmol/L (136-145); Thyroid Stimulating Hormone 2.01 uIU/mL (0.27-4.20); Total Bilirubin 0.2 mg/dL (0.15-1.2)
[2019-11-06 11:15] LABS: Influenza A by IFA Negative (Negative); Influenza B by IFA Positive (Negative)
== END 2019-11-19 23:59 | disposition home or self-care (01) ==
LOC: LAB 09:58
PROVIDERS: PCP Family Medicine; Visit Provider Family Medicine
DX: K35.32 Acute appendicitis with perforation, localized peritonitis, and gangrene, without abscess (principal); I10 Essential (primary) hypertension; B17.0 Acute delta-(super) infection of hepatitis B carrier
CPT/HCPCS: 80053; 84443; 85025; 87804

== ENCOUNTER 2019-11-15 16:08 | Outpatient (CLI) | payer MEDICARE, SELFPAY ==
--- NOTE | 2019-11-15 16:29 | XRR_ITS ---
PROCEDURE INFORMATION: Exam: XR Abdomen, 2 Views Exam date and time: 11/15/2019 4:43 PM Age: 59 years old Clinical indication: Prior surgery; Surgery date: 6+ months; Surgery type: Appy, date of surgery not provided; Patient HX: Constipation x 1 month TECHNIQUE: Imaging protocol: XR of the abdomen. Frontal supine and upright views of the abdomen. Views: 2 Views. COMPARISON: CR XR abdomen min 2V [id number] 10/25/2019 8:27 AM FINDINGS: Gastrointestinal tract: Normal. No bowel dilation. Intraperitoneal space: Normal. No free air. Vasculature: Diffuse arterial calcifications. Bones/joints: Leftward curvature and postoperative changes of the lumbar spine. XR/XR abdomen min 2V [id number] IMPRESSION: Nonspecific nonobstructive bowel gas pattern.
== END 2019-11-15 16:09 | disposition home or self-care (01) ==
LOC: RAD 16:13
PROVIDERS: PCP Family Medicine; Visit Provider Surgery
DX: K59.00 Constipation, unspecified (principal)
CPT/HCPCS: 74019

== ENCOUNTER 2019-11-18 09:40 | Outpatient (CLI) | payer MEDICARE, SELFPAY ==
--- NOTE | 2019-11-18 10:30 | CT_ITS ---
WS: [id number] CT ABDOMEN PELVIS TECHNIQUE: Contrast-enhanced CT of the abdomen and pelvis with coronal and sagittal reformatted image s. CLINICAL INFORMATION: abdominal bloating COMPARISON: October 19, 2019 DLP: 571.[address] scans at [facility] use at least one of these dose optimization techniques: automat ed exposure control; mA and/or kV adjustment per patient size (includes targeted exams where dose is matched to clinical indication); or iterative reconstruction. FINDINGS: Recent postoperative changes periappendiceal abscess evacuation. Complete evacuation of the previousl y described periappendiceal abscess. No evidence of recurrent or residual abscess. Expected normal po stoperative changes. Blind-ending tubular structure in the right lower quadrant consistent with resid ual appendix or appendiceal remnant fluid-filled measuring 6 mm in maximum dimension. Small amount of surrounding induration and enhancement. Normal liver. Normal portal vein and splenic vein. Normal gallbladder. Normal spleen. Normal GE junct ion. Lung bases are well aerated. Adrenal glands are normal. Heterogeneous striated bilateral renal parenchymal enhancement suspicious for pyelonephritis. This is worse in the right. Recommend correlation with urinary tract infection. Prominent right extrarenal p dalton with mild right ureterectasis. No obstructing lesions. Stable left extra renal pelvis. A few sm all renal cysts. No periaortic lymphadenopathy. Mesenteric calcification. Normal pancreas. Normal gallbladder. Inciden zia fat-containing umbilical hernia. Diverticulosis. No evidence of acute diverticulitis. No evidence of small or large bowel obstruction. Postoperative changes pedicle screw fixation L3-L5 with interco nnecting rods. Adrenal glands are normal. Message left for Hira Madrigal MD at 11/18/2019 12:[address]/CT abdomen pelvis w con* [id number] IMPRESSION: 1. Recent postoperative changes evacuation of the periappendiceal abscess. No residual or recurrent drainable fluid collection. Normal postoperative changes. 2. Blind-ending tubular structure in the right lower quadrant consistent with residual appendix or appendiceal remnant fluid-filled measuring 6 mm in maximum dimension. 3. Striated bilateral renal parenchymal enhancement suspicious for pyelonephri tis more prominent on the right. Correlation for urinary tract infection. 4. Prominent right extrarenal pelvis is new from previous with mild right prox imal ureterectasis. No obstructing lesions. 5. No free fluid in the pelvis. 6. No evidence of small or large bowel obstruction. 7. No other significant findings.
[2019-11-18] MEDS: iohexol 300 mg/mL 100 mL Btl IV (10:59)
== END 2019-11-18 09:41 | disposition home or self-care (01) ==
LOC: RAD 09:44
PROVIDERS: PCP Family Medicine; Visit Provider Surgery
DX: R14.0 Abdominal distension (gaseous) (principal)
CPT/HCPCS: 74177

== ENCOUNTER 2019-11-19 19:18 | Inpatient (IN) | payer MEDICARE, SELFPAY ==
[2019-11-19 19:31] VITALS: BP 147/90; PULSE 99; RESP 18; TEMP 36.7; O2SAT 98; BMI 24.2
[2019-11-19 21:05] VITALS: BP 136/84; PULSE 92; RESP 16; O2SAT 98
--- NOTE | 2019-11-19 21:08 | ED_ITS ---
Entered by Sayra Tabares, acting as scribe for Nicanor Carvajal DO Nov 19, 2019 19:18 HPI - General Adult General: Chief complaint: General Medical Stated complaint: kidney problems Time Seen by Provider: 11/19/19 21:04 Source: patient Mode of arrival: ambulatory Limitations: no limitations History of Present Illness: HPI narrative: 59 yo m came to the er pov for kidney problems.Onset was today. PT states that pt has been vomiting and cannot stop. PT had surgery on the Oct. Pt states that he got the flu while in the hospital. states that on Oct he started throwing up. Pt state that he also has had some diarrhea and abd pain. office called and told them that they seen something on his cat-scan that was wrong and told them to go to the er to get checked out. MD complaint: kidney problems Severity: mild and moderate Associated symptoms: Reports nausea and vomiting; Deny chest pain, dyspnea, headache(s), rash or palpitations Review of Systems Const: Denies: fever or chills Eyes: Denies: change in vision or blurry vision ENMT: Denies: painful swallowing, swelling of lips/tongue, bleeding gums, dental pain, Change in hearing, nose bleeds, post nasal drip or facial/sinus pain Card: Denies: chest pain, palpitations, irregular heart rhythm, edema, swelling of feet/ankles, shortness of breath on exertion or shortness of breath when lying down Resp: Denies: shortness of breath, productive cough, non-productive cough or wheezing GI: Reports: abdominal pain, nausea, vomiting and black tarry stool; Denies: rectal pain or blood in stool : Reports: difficulty urinating and painful urination; Denies: urinary frequency, urinary urgency or blood in urine Skin/Breast: Denies: rash, itching or redness Neuro: Denies: headache Psych: Reports: anxiety PFSH ED PFSH: Statuses (acute, chronic, etc) shown below reflect problem list status as previously entered and may not be historically accurate Medical History Hepatitis C (Acute) Left ureteral calculus (Acute) Neurogenic bladder (Chronic) Continue self-catheterization Pyelonephritis (Acute) Self-catheterizes urinary bladder (Resolved) Urinary bladder calculus (Acute) Surgical History H/O cervical spine surgery (Acute) S/P laparoscopic appendectomy (Acute) With drainage of intra-abdominal abscess 10/20/2019 S/P lumbar fusion (Acute) S/P ureteral stent placement (Acute) Family History (Updated 11/19/19 @ 23:09 by Iwona Nichole MD) Mother Cancer lung cancer Grandfather No problems noted. Other Dementia Hyperlipidemia Hypertension Social History Smoking and tobacco status: current every day smoker cigarettes Packs smoked per day: 1.5 Alcohol intake: current Alcohol intake frequency: 0-2 Drinks per Day Alcohol type: beer Counseling given: Yes Counseling given: Yes Physical Exam Const: GENERAL APPEARANCE: well developed ORIENTATION/CONSCIOUSNESS: Yes oriented to person, Yes oriented to place and Yes oriented to time HENMT: COMMON NORMALS: normocephalic, external ears normal and external nose normal HEAD & SCALP: normocephalic; no scalp tenderness FACE & SINUS: normal facial exam NOSE: external nose normal and no nasal discharge EXTERNAL EAR: Yes external ears normal MOUTH: tongue normal Eye: COMMON NORMALS: PERRL, EOMs intact bilaterally and conjunctivae normal EYELID: eyelids normal CONJUNCTIVA: Yes conjunctivae normal PUPIL: Yes PERRL Chest: COMMONS NORMALS: inspection of chest normal CHEST: No tenderness Resp: COMMON NORMALS: clear to auscultation bilaterally EFFORT & INSPECTION: No tachypneic, No respiratory distress, No retractions, No uses accessory muscles and No tracheal deviation AUSCULTATION: clear to auscultation bilaterally, no rhonchi, no wheezes and lung sounds not diminished Cardio: COMMON NORMALS: regular rate and regular rhythm RATE: regular rate RHYTHM: regular rhythm HEART SOUNDS: no murmurs PERIPHERAL PULSES: radial pulses present GI: INSPECTION: No abdominal distension AUSCULTATION: No hyperactive bowel sounds and No hypoactive bowel sounds PALPATION: No guarding and No rigid PERCUSSION: dullness to percussion and no tympanic to percussion Neuro: SENSORIUM/ORIENTATION: Yes oriented to person, Yes oriented to place and Yes oriented to time Psych: COMMON NORMALS: mental status grossly normal Skin: COMMON NORMALS: no rashes or lesions noted GENERAL SKIN EXAM: no rashes or lesions noted Course ED course: 59-year-old male with intractable vomiting. He self caths for urine, and has had a problem with ureteral stricture according to the patient's . He also had surgery the first of the month for appendicitis complicated by abscess. CT from earlier in the day shows no complication of surgery, but bilateral pyelonephritis changes with an increase in the extrarenal pelvic volume on the right concerning for possible obstruction. There was no stone. Spoke with urology. He believes treating the pyelonephritis would be the main thing at this point and will be available for consultation if needed. Admitted to hospitalist Consultations: Consultation #1: herrera Consultation #2: Harsha Consultation #3: iza Vital Signs: Vital signs: Vital Signs Temperature 98.1 F 11/20/19 00:00 Pulse Rate 89 11/20/19 00:00 Respiratory Rate 20 H 11/20/19 00:00 Blood Pressure 162/88 11/20/19 00:00 Pulse Oximetry 96 11/20/19 00:00 [facility] - General Adult Lab Data: Labs: Lab Results 11/19/19 11/19/19 11/19/19 Range/Units 21:10 21:10 21:10 WBC 9.8 (4.0-10.0) 10^3/ uL RBC 4.25 (4.1-5.3) 10^6/u L Hgb 12.8 (11.7-16.6) g/dL Hct 38.8 L (42.0-52.0) % MCV 91.3 (80-94) fL MCH 30.1 (28.0-34.0) pg MCHC 33.0 (30.0-36.0) g/dL RDW 13.2 (12.1-15.1) % Plt Count 357 (130-400) 10^3/c mm MPV 8.4 (7.4-10.4) fL Neut % (Auto) 70.1 % Lymph % (Auto) 19.8 % Osborne % (Auto) 7.0 % Eos % (Auto) 2.3 % Baso % (Auto) 0.8 % Neut # (Auto) 6.3 (1.8-7.7) 10^3/u L Lymph # (Auto) 2.0 (0.8-4.8) 10^3/u L Osborne # (Auto) 0.7 (0.2-0.9) 10^3/u L Eos # (Auto) 0.2 (0.0-0.8) 10^3/u L Baso # (Auto) 0.1 (0.0-0.1) 10^3/u L Nucleated RBC % (a uto) 0 % Nucleated RBCs # 0.0 /100WBC Sodium 130 L (136-145) mmol/L Potassium 3.2 L (3.5-5.1) mmol/L Chloride 93 L (98-107) mmol/L Carbon Dioxide 19 L (22-29) mmol/L Anion Gap 21.2 H (5-19) BUN 9 (6-20) mg/dL Creatinine 0.7 (0.7-1.2) mg/dL GFR Calculation 115.8 (90-130) mL/min Glucose 94 (74-109) mg/dL Lactic Acid 1.0 (0.5-2.2) mmol/L Calcium 9.8 (8.5-10.5) mg/dL Total Bilirubin 0.5 (0.15-1.2) mg/dL AST 23 (0-40) U/L ALT 15 (0-41) U/L Alkaline Phosphata se 110 (40-130) IU/L Total Protein 8.0 (6.6-8.7) g/dL Albumin 3.4 L (3.5-5.2) g/dL Globulin 4.6 (1.3-4.6) g/dL Lipase 19 (13-60) U/L Urine Color (Yellow) Urine Appearance (CLEAR) Urine pH (5-7) Ur Specific Gravit y (1.005-1.030) Urine Protein (Negative) Urine Glucose (UA) (Normal) Urine Ketones (Negative) Urine Occult Blood (Negative) Urine Nitrate (Negative) Urine Bilirubin (NEGATIVE) Urine Urobilinogen (Negative) mg/dL Ur Leukocyte Bertha ase (Negative) Urine RBC (0-2) /hpf Urine WBC (0-5) /hpf Ur Squamous Epith Cells (0-5) Urine Bacteria (NONE) 11/19/19 Range/Units 21:41 WBC (4.0-10.0) 10^3/ uL RBC (4.1-5.3) 10^6/u L Hgb (11.7-16.6) g/dL Hct (42.0-52.0) % MCV (80-94) fL MCH (28.0-34.0) pg MCHC (30.0-36.0) g/dL RDW (12.1-15.1) % Plt Count (130-400) 10^3/c mm MPV (7.4-10.4) fL Neut % (Auto) % Lymph % (Auto) % Osborne % (Auto) % Eos % (Auto) % Baso % (Auto) % Neut # (Auto) (1.8-7.7) 10^3/u L Lymph # (Auto) (0.8-4.8) 10^3/u L Osborne # (Auto) (0.2-0.9) 10^3/u L Eos # (Auto) (0.0-0.8) 10^3/u L Baso # (Auto) (0.0-0.1) 10^3/u L Nucleated RBC % (a uto) % Nucleated RBCs # /100WBC Sodium (136-145) mmol/L Potassium (3.5-5.1) mmol/L Chloride (98-107) mmol/L Carbon Dioxide (22-29) mmol/L Anion Gap (5-19) BUN (6-20) mg/dL Creatinine (0.7-1.2) mg/dL GFR Calculation (90-130) mL/min Glucose (74-109) mg/dL Lactic Acid (0.5-2.2) mmol/L Calcium (8.5-10.5) mg/dL Total Bilirubin (0.15-1.2) mg/dL AST (0-40) U/L ALT (0-41) U/L Alkaline Phosphata se (40-130) IU/L Total Protein (6.6-8.7) g/dL Albumin (3.5-5.2) g/dL Globulin (1.3-4.6) g/dL Lipase (13-60) U/L Urine Color Yellow (Yellow) Urine Appearance Sl cloudy A (CLEAR) Urine pH 6 (5-7) Ur Specific Gravit y 1.010 (1.005-1.030) Urine Protein Trace (Negative) Urine Glucose (UA) Norm (Normal) Urine Ketones 1+ H (Negative) Urine Occult Blood Neg (Negative) Urine Nitrate Positive H (Negative) Urine Bilirubin Neg (NEGATIVE) Urine Urobilinogen Norm (Negative) mg/dL Ur Leukocyte Bertha ase 1+ H (Negative) Urine RBC 0-4 H (0-2) /hpf Urine WBC 80-100 H (0-5) /hpf Ur Squamous Epith Cells 0-4 H (0-5) Urine Bacteria 3+ H (NONE) Discharge Plan Discharge Admit Provider: Iwona Nichole Discharge Date/Time: 11/19/19 23:42 Coding Level of Care Code ED Gut Carrier for noble Calderón The documentation recorded by the Rayshawn ellison Stephanie Lyn, accurately reflects the service I personally performed and the decisions made by Wei perez Jeremy John, DO Nov 19, 2019 19:18
[2019-11-19 21:29] LABS: Basophils # 0.1 10^3/uL (0.0-0.1); Basophils % 0.8 %; Eosinophils # 0.2 10^3/uL (0.0-0.8); Eosinophils % 2.3 %; Hematocrit 38.8 % (42.0-52.0); Hemoglobin 12.8 g/dL (11.7-16.6); Lymphocytes % 19.8 %; Mean Corpuscular Hemoglobin 30.1 pg (28.0-34.0); Mean Corpuscular Volume 91.3 fL (80-94); Mean Platelet Volume 8.4 fL (7.4-10.4); Monocytes # 0.7 10^3/uL (0.2-0.9); Neutrophils # 6.3 10^3/uL (1.8-7.7); Nucleated Red Blood Cells % 0 %; Platelet Count 357 10^3/cmm (130-400); Red Blood Count 4.25 10^6/uL (4.1-5.3); Red Cell Distribution Width 13.2 % (12.1-15.1); White Blood Count 9.8 10^3/uL (4.0-10.0)
[2019-11-19 21:30] LABS: Neutrophils % 70.1 %; Slide Review Slide Review Perform
[2019-11-19 21:36] LABS: Alanine Aminotransferase 15 U/L (0-41); Albumin Level 3.4 g/dL (3.5-5.2); Alkaline Phosphatase 110 IU/L (40-130); Anion Gap 21.2 (5-19); Aspartate Amino Transferase 23 U/L (0-40); Blood Urea Nitrogen 9 mg/dL (6-20); Calcium 9.8 mg/dL (8.5-10.5); Carbon Dioxide 19 mmol/L (22-29); Chloride 93 mmol/L (98-107); Creatinine Clr Calc Pharmacy 106.5603; Globulin 4.6 g/dL (1.3-4.6); Glomerular Filtration Rate 115.8 mL/min (90-130); Glucose 94 mg/dL (74-109); Lipase 19 U/L (13-60); Potassium 3.2 mmol/L (3.5-5.1); Sodium 130 mmol/L (136-145); Total Bilirubin 0.5 mg/dL (0.15-1.2)
[2019-11-19 22:02] LABS: Bilirubin Urine Neg (NEGATIVE); Blood Urine Neg (Negative); Glucose Urine UA Norm (Normal); Ketones Urine 1+ (Negative); Leukocyte Esterase Urine 1+ (Negative); Nitrate Urine Positive (Negative); Protein Urine Trace (Negative); Urine Color Yellow (Yellow); Urobilinogen Urine Norm (Negative); pH Urine 6 (5-7)
[2019-11-19 22:03] LABS: Add Urine Culture? Yes; Bacteria Urine 3+; RBC Urine 0-4 /hpf (0-2); Squamous Epithelial Cell Urine 0-4 (0-5); WBC Urine 80-100 /hpf (0-5)
[2019-11-19 22:08] VITALS: BP 157/93; PULSE 100; RESP 16; O2SAT 99
--- NOTE | 2019-11-19 22:58 | PM.HP ---
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 Patient is stating that he went to see Dr. Madrigal as a scheduled office visit where CT abdomen was recommended because he was complaining of nausea and vomiting for last 7 days, he did not experience excruciating abdominal pain but there was some mild discomfort and his subcostal regions bilaterally, fever [address] abdomen showed possible right-sided pyelonephritis and he was sent to ER for further evaluation. Patient was not in sepsis, he had hyponatremia, hypokalemia, right-sided pyelonephritis, he was given 1 dose of ceftriaxone in ER, because of appendiceal abscess I started him on Zosyn. Dr. Mcleod has also reviewed CT abdomen, he is available over the weekend in case we need him there is no obstructive uropathy at the moment however there is a history of obstructive pyelonephritis in the past. Review of Systems Const: Reports: fever, chills, body aches and fatigue Eyes: Denies: change in vision ENMT: Denies: throat pain Card: Denies: chest pain Resp: Denies: shortness of breath GI: Reports: abdominal pain, nausea and vomiting; Denies: feeling full early, diarrhea, bloating or cramping : Reports: flank pain and difficulty urinating Musc: Denies: neck pain Skin/Breast: Denies: rash Neuro: Denies: headache Psych: Denies: anxiety Endo: Denies: excessive urination Xu/Lymph: Denies: easy bruising All/Imm: Denies: hives Medications/Allergies Allergies Allergy/AdvReac Type Severity Reaction Status Date / Time Penicillins Allergy ALGY-Rash Verified 10/20/19 02:14 PFSH Acute PFSH: Statuses (acute, chronic, etc) shown below reflect problem list status as previously entered and may not be historically accurate Medical History Hepatitis C (Acute) Left ureteral calculus (Acute) Neurogenic bladder (Chronic) Continue self-catheterization Pyelonephritis (Acute) Self-catheterizes urinary bladder (Resolved) Urinary bladder calculus (Acute) Surgical History H/O cervical spine surgery (Acute) S/P laparoscopic appendectomy (Acute) With drainage of intra-abdominal abscess 10/20/2019 S/P lumbar fusion (Acute) S/P ureteral stent placement (Acute) Family History (Updated 11/19/19 @ 23:09 by Iwona Nichole MD) Mother Cancer lung cancer Grandfather No problems noted. Other Dementia Hyperlipidemia Hypertension Social History Smoking and tobacco status: current every day smoker cigarettes Packs smoked per day: 1.5 Alcohol intake: current Alcohol intake frequency: 0-2 Drinks per Day Alcohol type: beer Counseling given: Yes Counseling given: Yes Vitals/I&O/Wt Last Vital Signs Temp 98.0 F 11/19/19 19:31 Pulse 100 11/19/19 22:08 Resp 16 11/19/19 22:08 BP 157/93 11/19/19 22:08 Pulse Ox 99 11/19/19 22:08 Weight last 48 hrs Weight 68.039 kg Physical Exam Narrative: EXAM NARRATIVE: Appears more than stated age, looks dehydrated, not in any active distress Skin does not show any signs of ischemic any ulcer however signs of dehydration positive Sunken eyes EOMI, PERRLA Poor dental hygiene Abdomen soft, nontender, nondistended, no signs of peritonitis, bowel sounds present, severe tenderness positive right Patient is paraplegic, does straight cath, no new focal changes Bilateral breath sounds equal without any adventitious sounds Appropriate mood and affect Data : 11/19/19 21:10 11/19/19 21:10 Micro: Microbiology 11/19/19 21:10 Blood Culture - Preliminary Blood SPECIMEN COLLECTED 11/19/19 21:14 Blood Culture - Preliminary Blood SPECIMEN COLLECTED A&P Assessment and plan (1) Pyelonephritis of right kidney: Status: Acute Code(s): N12 - Tubulo-interstitial nephritis, not specified as acute or chronic (2) S/P laparoscopic appendectomy: Status: Acute Code(s): Z90.49 - Acquired absence of other specified parts of digestive tract (3) Neurogenic bladder: Status: Chronic Code(s): N31.9 - Neuromuscular dysfunction of bladder, unspecified Additional A&P Information Right-sided pyelonephritis Non-obstructive signs on CT abdomen No hydronephrosis No active nausea vomiting Would use Zosyn for now No active signs of sepsis Previous history of obstructive uropathy causing pyelonephritis, no active such signs or symptoms, will let Dr. Mcleod know if his symptoms are worsening, no need of consult for now We will follow-up with urine blood culture Recurrent nausea and vomiting due to pyelonephritis Patient is dehydrated with hyponatremia and hypokalemia, Fluid and electrolyte replenishment No signs of appendiceal abscess on CT abdomen Dr. Madrigal has been made aware, no need of General surgery consult Patient is paraplegic after C-spine injury, he does intermittent catheterization, will put Gallardo catheter in overnight because he is getting fluids along antibiotics, catheter can be discontinued in the morning once he is able to self catheterize himself DVT prophylaxis: Lovenox Full code Patient is a smoker, he does not want any nicotine patches, counseled on quitting smoking and explained complications such as cancers, COPD, delayed wound healing etc. patient not ready to quit at the moment Attestations Medical Necessity Statement*: Anticipating his stay to cross more than 2 midnights because of pyonephritis and previous history of obstructive uropathy, recently appendiceal abscess has been drained Time Spent in Patient Care: 50 Coding Level of Care Code Acute Stave Planer Tender for [facility] Diagnoses Pyelonephritis of right kidney N12 S/P laparoscopic appendectomy Z90.49 Neurogenic bladder N31.9
[2019-11-19] MEDS: cefTRIAXone 1,000 MG in sodium chloride 0.9% (plus) 50 ML 100 MG IV (23:13)
[2019-11-19 23:23] VITALS: BP 139/81; PULSE 84; RESP 16; O2SAT 99
[2019-11-20] VITALS (7 sets, daily range): BP systolic 121–162; BP diastolic 72–88; PULSE 80–89; RESP 18–22; TEMP 36.6–37.3; O2SAT 95–98
[2019-11-20] MEDS: sodium chlor 0.9% + KCl 20 mEq 20 MEQ/1,000 ML BAG 150 MEQ IV ×3 (00:25→20:33)
[2019-11-20] MEDS: enoxaparin 40 mg/0.4 mL Syringe SUBCUT (00:26)
[2019-11-20] MEDS: HYDROcodone-acetaminophen 10-325 mg Tablet 1 TAB PO ×3 (01:09→15:19)
[2019-11-20] MEDS: piperacillin-tazobactam 3.375 GM in sodium chloride 0.9% (plus) 50 ML IV ×3 (01:15→17:24)
[2019-11-20 04:49] LABS: Basophils # 0.1 10^3/uL (0.0-0.1); Basophils % 0.8 %; Eosinophils # 0.3 10^3/uL (0.0-0.8); Hematocrit 35.9 % (42.0-52.0); Hemoglobin 12.1 g/dL (11.7-16.6); Lymphocytes # 1.8 10^3/uL (0.8-4.8); Lymphocytes % 20.1 %; Mean Corpuscular HGB Conc 33.7 g/dL (30.0-36.0); Mean Corpuscular Hemoglobin 31.2 pg (28.0-34.0); Mean Corpuscular Volume 92.5 fL (80-94); Mean Platelet Volume 8.7 fL (7.4-10.4); Monocytes # 0.7 10^3/uL (0.2-0.9); Monocytes % 7.4 %; Neutrophils # 5.6 10^3/uL (1.8-7.7); Nucleated Red Blood Cells % 0 %; Platelet Count 333 10^3/cmm (130-400); Red Blood Count 3.88 10^6/uL (4.1-5.3); Red Cell Distribution Width 13.2 % (12.1-15.1); White Blood Count 8.8 10^3/uL (4.0-10.0)
[2019-11-20 05:04] LABS: Alanine Aminotransferase 13 U/L (0-41); Albumin Level 3.1 g/dL (3.5-5.2); Alkaline Phosphatase 93 IU/L (40-130); Anion Gap 22.2 (5-19); Aspartate Amino Transferase 20 U/L (0-40); Blood Urea Nitrogen 8 mg/dL (6-20); Calcium 9.2 mg/dL (8.5-10.5); Carbon Dioxide 19 mmol/L (22-29); Chloride 95 mmol/L (98-107); Globulin 4.3 g/dL (1.3-4.6); Glomerular Filtration Rate 138.4 mL/min (90-130); Glucose 86 mg/dL (74-109); Potassium 3.2 mmol/L (3.5-5.1); Sodium 133 mmol/L (136-145); Total Bilirubin 0.5 mg/dL (0.15-1.2); Total Protein 7.4 g/dL (6.6-8.7)
[2019-11-20 05:42] LABS: Slide Review Slide Review Perform
[2019-11-20 05:43] LABS: Neutrophils % 68.7 %
[2019-11-20] MEDS: baclofen 10 mg Tablet PO ×3 (09:01→20:35)
[2019-11-20] MEDS: gabapentin 300 mg Capsule PO ×3 (09:01→20:35)
[2019-11-20] MEDS: lisinopril 20 mg Tablet PO ×2 (09:02→17:25)
--- NOTE | 2019-11-20 15:18 | PC.CHAP ---
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 [] Patient/Family/Request visit [] Outpatient visit [] Follow-up visit [] Physician referral [] Code/Alert [x] Routine visit [] Staff referral [] Actively dying [] Patient sleeping [] Family support [] [] Out of room [] Palliative care [] [] Receiving care in room [] Pre-surgical visit [] Trauma [] Long length of stay [] ICU visit [] Other: Relational/Emotional Strength [] Patient feels connected with others/family/visitors/staff [] Distress [] Loneliness/isolation [] Abandonment Spirituality of Patient [] Person of Breanna [] Attends Bahai of their Breanna [] Believes in Prayer [] Reads Bible or Jain materials [] There are Spiritual issues to be addressed Fsr Interventions [] Prayer [] Active listening [] Non-anxious presence [] Spiritual/emotional support [] Crisis/trauma care [] Spiritual counseling [] Bereavement support [] Provided bereavement packet [] Provided Bible/devotional materials [] Provided toy/stuffed animal, coloring book to patient or family member [] Provided Communion [] Anointing/[place] [] Salvation [] Completed spiritual assessment [] Other: Impact on Illness or Injury [] Angry [] Fearful [] Anxious [] Often cries [] Exhaustion [] Unable to work [] Unable to attend caodaism [] Unable to walk/stand [] Unable to read [] Unable to drive [] Unable to eat/drink [] Unable to sleep [] Unable to be with family [] Patient intubated [] Other: Summary In good spirits, leaving tomorrow Time spent with patient
--- NOTE | 2019-11-20 16:15 | PM.PN ---
Subjective Subjective: Interval history: Overnight labs and H&P reviewed. Reports no new complaints today. No back pain or abdominal pain. No NVD at this time. Afebrile, hemodynamically stable. Medications: Reviewed: Yes Vitals/I&O/Wt Last Vital Signs Temp 99.1 F 11/20/19 15:01 Pulse 85 11/20/19 15:01 Resp 22 H 11/20/19 15:01 BP 149/75 11/20/19 15:01 Pulse Ox 98 11/20/19 15:01 11/20/19 11/20/19 11/20/19 06:59 14:59 22:59 Intake Total 1147.5 / 1147.5 360 / 360 Output Total 0 / 0 850 / 850 Balance 1147.5 / 1147.5 -490 / -490 Weight last 48 hrs Weight 68.039 kg Physical Exam Urinary Catheter Management^: Gallardo: Cath Placed During This Visit: no Data : 11/20/19 03:59 11/20/19 03:59 Micro: Microbiology 11/19/19 21:10 Blood Culture - Preliminary Blood SPECIMEN COLLECTED 11/19/19 21:14 Blood Culture - Preliminary Blood SPECIMEN COLLECTED A&P Assessment and plan (1) Pyelonephritis of right kidney: Status: Acute Code(s): N12 - Tubulo-interstitial nephritis, not specified as acute or chronic (2) S/P laparoscopic appendectomy: Status: Acute Code(s): Z90.49 - Acquired absence of other specified parts of digestive tract (3) Neurogenic bladder: Status: Chronic Code(s): N31.9 - Neuromuscular dysfunction of bladder, unspecified Additional A&P Information Right-sided pyelonephritis No obstructive signs on CT abdomen No hydronephrosis Continue Zosyn No active signs of sepsis Previous history of obstructive uropathy causing pyelonephritis, no active such signs or symptoms, will consult Dr. Mcleod if his symptoms are worsening We will follow-up with urine blood culture Recurrent nausea and vomiting due to pyelonephritis Patient is dehydrated with hyponatremia and hypokalemia, supplement 40 alexander po potassium Fluid and electrolyte replenishment No signs of appendiceal abscess on CT abdomen Dr. 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 DVT prophylaxis: Lovenox Full code Attestations Medical Necessity Statement*: admitted for management of pyelonephritis, iv antibiotics management Coding Level of Care Code Acute Lithographers Printer for [facility] Fwd Diagnoses Pyelonephritis of right kidney N12 S/P laparoscopic appendectomy Z90.49 Neurogenic bladder N31.9
[2019-11-20] MEDS: potassium chloride oral liq 20 mEq/15 mL UDC 40 MEQ PO (17:25)
[2019-11-21] VITALS (7 sets, daily range): BP systolic 134–160; BP diastolic 71–90; PULSE 66–83; RESP 16–22; TEMP 36.3–37.2; O2SAT 97–98
[2019-11-21] MEDS: enoxaparin 40 mg/0.4 mL Syringe SUBCUT (00:40)
[2019-11-21] MEDS: piperacillin-tazobactam 3.375 GM in sodium chloride 0.9% (plus) 50 ML IV ×3 (00:40→18:33)
[2019-11-21] MEDS: HYDROcodone-acetaminophen 10-325 mg Tablet 1 TAB PO ×4 (00:44→21:25)
[2019-11-21] MEDS: sodium chlor 0.9% + KCl 20 mEq 20 MEQ/1,000 ML BAG 150 MEQ IV ×2 (03:23→18:32)
[2019-11-21 04:59] LABS: Basophils % 0.7 %; Eosinophils # 0.1 10^3/uL (0.0-0.8); Eosinophils % 1.7 %; Hematocrit 29.8 % (42.0-52.0); Hemoglobin 9.5 g/dL (11.7-16.6); Lymphocytes # 1.3 10^3/uL (0.8-4.8); Lymphocytes % 21.6 %; Mean Corpuscular HGB Conc 31.9 g/dL (30.0-36.0); Mean Corpuscular Hemoglobin 29.7 pg (28.0-34.0); Mean Corpuscular Volume 93.1 fL (80-94); Mean Platelet Volume 8.7 fL (7.4-10.4); Monocytes # 0.4 10^3/uL (0.2-0.9); Monocytes % 6.6 %; Neutrophils # 4.1 10^3/uL (1.8-7.7); Neutrophils % 67.3 %; Nucleated Red Blood Cells % 0 %; Platelet Count 213 10^3/cmm (130-400); Red Cell Distribution Width 13.3 % (12.1-15.1); White Blood Count 6.1 10^3/uL (4.0-10.0)
[2019-11-21 05:31] LABS: Alanine Aminotransferase 10 U/L (0-41); Albumin Level 2.7 g/dL (3.5-5.2); Alkaline Phosphatase 82 IU/L (40-130); Anion Gap 15.7 (5-19); Aspartate Amino Transferase 15 U/L (0-40); Blood Urea Nitrogen 6 mg/dL (6-20); Calcium 8.9 mg/dL (8.5-10.5); Carbon Dioxide 18 mmol/L (22-29); Chloride 105 mmol/L (98-107); Creatinine Clr Calc Pharmacy 106.5603; Globulin 3.6 g/dL (1.3-4.6); Glomerular Filtration Rate 115.8 mL/min (90-130); Glucose 113 mg/dL (74-109); Potassium 4.7 mmol/L (3.5-5.1); Sodium 134 mmol/L (136-145); Total Bilirubin 0.4 mg/dL (0.15-1.2); Total Protein 6.3 g/dL (6.6-8.7)
[2019-11-21] MEDS: gabapentin 300 mg Capsule PO ×3 (08:38→21:23)
[2019-11-21] MEDS: lisinopril 20 mg Tablet PO ×2 (08:38→18:33)
[2019-11-21] MEDS: baclofen 10 mg Tablet PO ×3 (08:38→21:23)
--- NOTE | 2019-11-21 17:04 | PM.PN ---
Subjective Subjective: Interval history: Patient reports feeling much better. Denies shortness of breath or chest pain. Denies abdominal pain. Vitals/I&O/Wt Last Vital Signs Temp 97.3 F L 11/21/19 15:21 Pulse 83 11/21/19 15:21 Resp 22 H 11/21/19 15:21 BP 157/85 11/21/19 15:21 Pulse Ox 98 11/21/19 15:21 11/21/19 11/21/19 11/21/19 06:59 14:59 22:59 Intake Total 1050 / 4140 840 / 840 600 / 1440 Output Total 900 / 2550 1600 / 1600 Balance 150 / 1590 -760 / -760 600 / -160 Weight last 48 hrs Weight 68.039 kg Physical Exam Const: COMMON NORMALS: oriented x3 Chest: COMMONS NORMALS: inspection of chest normal Resp: COMMON NORMALS: normal respiratory effort and clear to auscultation bilaterally AUSCULTATION: clear to auscultation bilaterally Cardio: COMMON NORMALS: regular rate, regular rhythm and S2 normal heart sound RATE: regular rate RHYTHM: regular rhythm HEART SOUNDS: S2 normal GI: COMMON NORMALS: normal to inspection, nondistended, normoactive bowel sounds, soft to palpation and non-tender PALPATION: Yes soft Neuro: COMMON NORMALS: oriented x3 Urinary Catheter Management^: Gallardo: Cath Placed During This Visit: no Data : 11/21/19 04:45 11/21/19 04:45 Micro: Microbiology 11/19/19 21:41 Urine Culture - Preliminary Urine,Clean Catch Gram Negative Rods 11/19/19 21:10 Blood Culture - Preliminary Blood Gram positive cocci 11/19/19 21:14 Blood Culture - Preliminary Blood NEGATIVE TO DATE A&P Assessment and plan (1) Pyelonephritis of right kidney: Status: Acute Code(s): N12 - Tubulo-interstitial nephritis, not specified as acute or chronic (2) S/P laparoscopic appendectomy: Status: Acute Code(s): Z90.49 - Acquired absence of other specified parts of digestive tract (3) Neurogenic bladder: Status: Chronic Code(s): N31.9 - Neuromuscular dysfunction of bladder, unspecified Additional A&P Information Right-sided pyelonephritis No obstructive signs on CT abdomen No hydronephrosis Continue Zosyn. Awaiting culture results. Recurrent nausea and vomiting due to pyelonephritis, Improved Patient is dehydrated with hyponatremia and hypokalemia, supplement 40 alexander po potassium , Improved No signs of appendiceal abscess on CT abdomen Dr. 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 DVT prophylaxis: Lovenox And monitor hemoglobin and platelets. Full code Attestations Medical Necessity Statement*: Patient was acute pyelonephritis requires close inpatient monitoring and treatment until deemed safe for discharge. Time Spent in Patient Care: 16 - 35 minutes Coding Level of Care Code Acute District Extension Service Agent for [facility] Fwd Diagnoses Pyelonephritis of right kidney N12 S/P laparoscopic appendectomy Z90.49 Neurogenic bladder N31.9
[2019-11-22] MEDS: enoxaparin 40 mg/0.4 mL Syringe SUBCUT ×2 (00:13→21:30)
[2019-11-22] MEDS: piperacillin-tazobactam 3.375 GM in sodium chloride 0.9% (plus) 50 ML IV ×2 (00:14→09:26)
[2019-11-22 03:27] VITALS: BP 124/82; PULSE 67; RESP 20; TEMP 36.6; O2SAT 100
[2019-11-22] MEDS: HYDROcodone-acetaminophen 10-325 mg Tablet 1 TAB PO ×3 (04:31→19:41)
[2019-11-22] MEDS: sodium chlor 0.9% + KCl 20 mEq 20 MEQ/1,000 ML BAG 150 MEQ IV ×2 (04:31→21:28)
[2019-11-22 05:53] LABS: Basophils % 0.7 %; Eosinophils # 0.1 10^3/uL (0.0-0.8); Eosinophils % 2.1 %; Hematocrit 35.4 % (42.0-52.0); Hemoglobin 11.4 g/dL (11.7-16.6); Lymphocytes # 1.2 10^3/uL (0.8-4.8); Mean Corpuscular HGB Conc 32.2 g/dL (30.0-36.0); Mean Corpuscular Hemoglobin 30.1 pg (28.0-34.0); Mean Corpuscular Volume 93.4 fL (80-94); Mean Platelet Volume 8.9 fL (7.4-10.4); Monocytes # 0.5 10^3/uL (0.2-0.9); Monocytes % 7.8 %; Neutrophils # 3.8 10^3/uL (1.8-7.7); Neutrophils % 64.8 %; Nucleated Red Blood Cells % 0 %; Platelet Count 252 10^3/cmm (130-400); Red Blood Count 3.79 10^6/uL (4.1-5.3); Red Cell Distribution Width 13.4 % (12.1-15.1); White Blood Count 5.8 10^3/uL (4.0-10.0)
[2019-11-22 06:25] LABS: Alanine Aminotransferase 11 U/L (0-41); Albumin Level 3.2 g/dL (3.5-5.2); Alkaline Phosphatase 101 IU/L (40-130); Anion Gap 13.3 (5-19); Aspartate Amino Transferase 19 U/L (0-40); Blood Urea Nitrogen 10 mg/dL (6-20); Calcium 9.7 mg/dL (8.5-10.5); Carbon Dioxide 22 mmol/L (22-29); Chloride 103 mmol/L (98-107); Globulin 3.5 g/dL (1.3-4.6); Glomerular Filtration Rate 99.3 mL/min (90-130); Glucose 125 mg/dL (74-109); Potassium 4.3 mmol/L (3.5-5.1); Sodium 134 mmol/L (136-145); Total Bilirubin 0.2 mg/dL (0.15-1.2); Total Protein 6.7 g/dL (6.6-8.7)
[2019-11-22 07:15] VITALS: BP 155/84; PULSE 78; RESP 18; TEMP 36.5; O2SAT 97
[2019-11-22] MEDS: lisinopril 20 mg Tablet PO ×2 (09:26→18:04)
[2019-11-22] MEDS: gabapentin 300 mg Capsule PO ×3 (09:26→21:28)
[2019-11-22] MEDS: baclofen 10 mg Tablet PO ×3 (09:26→21:28)
[2019-11-22 10:57] VITALS: BP 153/94; PULSE 86; RESP 20; TEMP 36.8; O2SAT 98
--- NOTE | 2019-11-22 11:11 | PC.SOCIAL ---
Pg 2 of IMM Pg 2 of IMM was explained to and signed by patient, copy was provided, and form placed in chart. He verbalized understanding and had no questions.
--- NOTE | 2019-11-22 14:46 | PM.PN ---
Subjective Subjective: Interval history: Patient denies shortness of breath or chest pain. He feels strong enough to be dismissed home. He reports that for the last couple years he has been having loose/diarrheal bowel movements and had episodes of diarrheal bowel movement shortly prior to my visit. His urine is growing E. coli susceptible to ceftriaxone. Reports chronic low back pain but denies any flank pains. Medications: Reviewed: Yes Vitals/I&O/Wt Last Vital Signs Temp 98.2 F 11/22/19 10:57 Pulse 86 11/22/19 10:57 Resp 20 H 11/22/19 10:57 BP 153/94 11/22/19 10:57 Pulse Ox 98 11/22/19 10:57 11/21/19 11/22/19 11/22/19 22:59 06:59 14:59 Intake Total 1130 / 3020 1050 / 4070 1660 / 1660 Output Total 1600 / 3200 1220 / 4420 Balance -470 / -180 -170 / -350 1660 / 1660 Physical Exam Const: COMMON NORMALS: oriented x3 Chest: COMMONS NORMALS: inspection of chest normal Resp: COMMON NORMALS: normal respiratory effort and clear to auscultation bilaterally AUSCULTATION: clear to auscultation bilaterally Cardio: COMMON NORMALS: regular rate, regular rhythm and S2 normal heart sound RATE: regular rate RHYTHM: regular rhythm HEART SOUNDS: S2 normal GI: COMMON NORMALS: normal to inspection, nondistended, normoactive bowel sounds, soft to palpation and non-tender PALPATION: Yes soft Neuro: COMMON NORMALS: oriented x3 Urinary Catheter Management^: Gallardo: Cath Placed During This Visit: no Data : 11/22/19 05:21 11/22/19 05:21 Micro: Microbiology 11/19/19 21:41 Urine Culture - Final Urine,Clean Catch Escherichia coli 11/19/19 21:10 Blood Culture - Preliminary Blood Coagulase negativ staphylococc A&P Assessment and plan (1) Pyelonephritis of right kidney: Status: Acute Code(s): N12 - Tubulo-interstitial nephritis, not specified as acute or chronic (2) S/P laparoscopic appendectomy: Status: Acute Code(s): Z90.49 - Acquired absence of other specified parts of digestive tract (3) Neurogenic bladder: Status: Chronic Code(s): N31.9 - Neuromuscular dysfunction of bladder, unspecified (4) Chronic diarrhea: Status: Acute Code(s): K52.9 - Noninfective gastroenteritis and colitis, unspecified Additional A&P Information Right-sided pyelonephritis No obstructive signs on CT abdomen No hydronephrosis Discontinue Zosyn and start patient on ceftriaxone with plan to transition to Omnicef. Check stool for C. difficile infection. Recurrent nausea and vomiting due to pyelonephritis, Improved Patient is dehydrated with hyponatremia and hypokalemia, supplement 40 alexander po potassium , Improved No signs of appendiceal abscess on CT abdomen Dr. 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 DVT prophylaxis: Lovenox And monitor hemoglobin and platelets. Full code Attestations Medical Necessity Statement*: Patient with UTI and diarrhea requires close inpatient monitoring and treatment until deemed safe for discharge. Time Spent in Patient Care: 16 - 35 minutes Coding Level of Care Code Acute Disease Education Specialist for [facility] Fwd Diagnoses Pyelonephritis of right kidney N12 S/P laparoscopic appendectomy Z90.49 Neurogenic bladder N31.9 Chronic diarrhea K52.9
[2019-11-22 15:18] VITALS: BP 164/87; PULSE 80; RESP 18; TEMP 36.8; O2SAT 99
[2019-11-22] MEDS: cefTRIAXone 2,000 MG in sodium chloride 0.9% (plus) 50 ML 100 MG IV (15:49)
--- NOTE | 2019-11-22 19:00 | PC.NURSE ---
Introduction of staff and report received, aidet.
[2019-11-22 19:17] VITALS: BP 169/90; PULSE 78; RESP 20; TEMP 36.8; O2SAT 98
[2019-11-22 23:48] VITALS: BP 111/58; PULSE 96; RESP 16; TEMP 36.8; O2SAT 95
[2019-11-23] MEDS: sodium chlor 0.9% + KCl 20 mEq 20 MEQ/1,000 ML BAG 150 MEQ IV ×4 (03:56→10:25)
[2019-11-23] MEDS: HYDROcodone-acetaminophen 10-325 mg Tablet 1 TAB PO ×3 (03:56→14:17)
[2019-11-23 04:00] VITALS: BP 153/90; PULSE 73; RESP 16; TEMP 36.8; O2SAT 100
[2019-11-23 07:21] VITALS: BP 168/92; PULSE 74; RESP 18; TEMP 36.8; O2SAT 98
[2019-11-23] MEDS: lisinopril 20 mg Tablet PO (08:23)
[2019-11-23] MEDS: baclofen 10 mg Tablet PO ×2 (08:23→14:17)
[2019-11-23] MEDS: gabapentin 300 mg Capsule PO ×2 (08:23→14:17)
[2019-11-23 11:09] VITALS: BP 130/66; PULSE 66; RESP 22; TEMP 37.1; O2SAT 95
--- NOTE | 2019-11-23 13:00 | P.DS_ITS ---
Discharge Providers Date of Admission: 11/19/19 22:43 Date of Discharge: Date of Discharge: November 23, 2019 Attending Provider at Admission: Iwona Nichole MD Attending Provider at Discharge: Gray Lieberman MD Primary Care Provider: Babs Camara DO Diagnoses at Discharge Discharge Diagnosis (1) Pyelonephritis of right kidney: Status: Acute Problem details: Patient developed prominent right extrarenal pelvis which is concerning for extrarenal origin of infectious process after recent appendectomy. (2) S/P laparoscopic appendectomy: Status: Acute Problem details: With drainage of intra-abdominal abscess 10/20/2019 (3) Neurogenic bladder: Status: Chronic Problem details: Continue self-catheterization (4) Chronic diarrhea: Status: Acute Reason for Visit Reason for Visit: Reason For Visit: acute pyelonephritis;vomiting w/dehydration Hospital Course Discharge Summary: Patient with partial quadriplegia and neurogenic bladder requiring self-catheterization's presents with dehydration secondary to nausea and vomiting as well as decreased oral intake on top of chronic diarrhea. He was found to have acute pyelonephritis. He recently had appendectomy requiring drain. He was found to have prominent right extrarenal pelvis with suspicion for infection originating extrarenally. Patient was treated with IV fluids and antibiotics and gradually improved. His urine culture is growing E. coli susceptible to ceftriaxone. Patient reported having chronic diarrhea and C. difficile test was checked which was negative. Patient was noted to be on lactulose twice daily and I will change it to once daily and if patient continues to have diarrhea you should discontinue it. I will request outpatient follow-up with Dr. Mcleod given findings of CT scan. I will continue Omnicef for 2 weeks. Physical Exam Const: COMMON NORMALS: no apparent distress and oriented x3 Resp: COMMON NORMALS: normal respiratory effort and clear to auscultation bilaterally AUSCULTATION: clear to auscultation bilaterally Cardio: COMMON NORMALS: regular rate, regular rhythm and S2 normal heart sound RATE: regular rate RHYTHM: regular rhythm HEART SOUNDS: S2 normal OTHER: No lower extremity edema GI: COMMON NORMALS: normal to inspection, nondistended, normoactive bowel sounds, soft to palpation and non-tender PALPATION: Yes soft Neuro: COMMON NORMALS: oriented x3 Urinary Catheter Management^: Gallardo: Cath Placed During This Visit: no Discharge Data Data Completed and Pending: Pending at discharge Category Date Time Status Blood Culture Sta t Lab 11/19/19 21:10 Results Vitals: Last Vital Signs Temp 98.7 F 11/23/19 11:09 Pulse 66 11/23/19 11:09 Resp 22 H 11/23/19 11:09 BP 130/66 11/23/19 11:09 Pulse Ox 95 11/23/19 11:09 Discharge Plan Discharge Patient Disposition: Home, Self-Care Condition: Stable Prescriptions: New cefdinir 300 mg capsule 300 mg PO BID 14 Days Qty: 28 RF: 0 Continued hydrocodone-acetaminophen 10-325 mg Tablet 1 tab PO Q6H PRN (Reason: Pain) RF: 0 baclofen 10 mg Tablet 10 mg PO TID RF: 0 gabapentin 600 mg Tablet 600 mg PO TID RF: 0 methenamine hippurate 1 gram Tablet 1 g PO BID RF: 0 furosemide [Lasix] 20 mg Tablet 20 mg PO DAILY RF: 0 ascorbic acid (vitamin C) [Vitamin C] 1,000 mg Tablet 1 g PO BID RF: 0 lisinopril 20 mg PO BID RF: 0 lactulose 10 gram/15 mL solution 15 ml PO BID Qty: 237 RF: 2 Referrals: Alex Mcleod MD [Physician] - 7-10 days (Prominent right extrarenal pelvis which is new shortly after appendectomy) Babs Camara DO [Primary Care Provider] - 4-7 days Discharge Diet: Usual diet Discharge Activity: Resume usual activity Activity Restrictions/Additional Instructions: Please call your doctor or present to emergency department if your condition worsens including diarrhea. You should stop taking lactulose if your diarrhea persists. But should you get constipated you need to restart lactulose again. Continue with self catheterizations. Please present back to ER should you get fever or develop abdominal pain or generalized weakness. 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
--- NOTE | 2019-11-23 13:04 | P.DS_ITS ---
Discharge Providers Date of Admission: 11/19/19 22:43 Date of Discharge: Date of Discharge: November 23, 2019 Attending Provider at Admission: Iwona Nichole MD Attending Provider at Discharge: Gray Lieberman MD Primary Care Provider: Babs Camara DO Diagnoses at Discharge Discharge Diagnosis (1) Pyelonephritis of right kidney: Status: Acute (2) S/P laparoscopic appendectomy: Status: Acute Problem details: With drainage of intra-abdominal abscess 10/20/2019 (3) Neurogenic bladder: Status: Chronic Problem details: Continue self-catheterization (4) Chronic diarrhea: Status: Acute Reason for Visit Reason for Visit: Reason For Visit: acute pyelonephritis;vomiting w/dehydration Physical Exam Urinary Catheter Management^: Gallardo: Cath Placed During This Visit: no Discharge Data Data Completed and Pending: Pending at discharge Category Date Time Status Blood Culture Sta t Lab 11/19/19 21:10 Results Vitals: Last Vital Signs Temp 98.7 F 11/23/19 11:09 Pulse 66 11/23/19 11:09 Resp 22 H 11/23/19 11:09 BP 130/66 11/23/19 11:09 Pulse Ox 95 11/23/19 11:09 Discharge Plan Discharge Patient Disposition: Home, Self-Care Condition: Stable Prescriptions: New cefdinir 300 mg capsule 300 mg PO BID 14 Days Qty: 28 RF: 0 Continued hydrocodone-acetaminophen 10-325 mg Tablet 1 tab PO Q6H PRN (Reason: Pain) RF: 0 baclofen 10 mg Tablet 10 mg PO TID RF: 0 gabapentin 600 mg Tablet 600 mg PO TID RF: 0 methenamine hippurate 1 gram Tablet 1 g PO BID RF: 0 furosemide [Lasix] 20 mg Tablet 20 mg PO DAILY RF: 0 ascorbic acid (vitamin C) [Vitamin C] 1,000 mg Tablet 1 g PO BID RF: 0 lisinopril 20 mg PO BID RF: 0 lactulose 10 gram/15 mL solution 15 ml PO BID Qty: 237 RF: 2 Referrals: Alex Mcleod MD [Physician] - 7-10 days (Prominent right extrarenal pelvis which is new shortly after appendectomy) Babs Camara DO [Primary Care Provider] - 4-7 days Discharge Diet: Usual diet Discharge Activity: Resume usual activity Activity Restrictions/Additional Instructions: Please call your doctor or present to emergency department if your condition worsens including diarrhea. You should stop taking lactulose if your diarrhea persists. But should you get constipated you need to restart lactulose again. Continue with self catheterizations. Please present back to ER should you get fever or develop abdominal pain or generalized weakness. Coding Level of Care Code Acute Security Analyst for [facility] Fwd Diagnoses Pyelonephritis of right kidney N12 S/P laparoscopic appendectomy Z90.49 Neurogenic bladder N31.9 Chronic diarrhea K52.9
--- NOTE | 2019-11-23 14:00 | PC.CHAP ---
Pastoral Care Encounter/Spiritual Assessment Type of Contact [] Declined export freight specialist visit [] Patient/Family/Request visit [] Outpatient visit [] Follow-up visit [] Physician referral [] Code/Alert [x] Routine visit [] Staff referral [] Actively dying [] Patient sleeping [] Family support [] [] Out of room [] Palliative care [] [] Receiving care in room [] Pre-surgical visit [] Trauma [] Long length of stay [] ICU visit [] Other: Relational/Emotional Strength [x] Patient feels connected with others/family/visitors/staff [] Distress [] Loneliness/isolation [] Abandonment Spirituality of Patient [x] Person of Breanna [] Attends Restoration of their Breanna [x] Believes in Prayer [] Reads Bible or Synagogue materials [] There are Spiritual issues to be addressed Criminal Profiler Interventions [x] Prayer [x] Active listening [x] Non-anxious presence [x] Spiritual/emotional support [] Crisis/trauma care [] Spiritual counseling [] Bereavement support [] Provided bereavement packet [] Provided Bible/devotional materials [] Provided toy/stuffed animal, coloring book to patient or family member [] Provided Communion [] Anointing/[place] [] Salvation [] Completed spiritual assessment [] Other: Impact on Illness or Injury [] Angry [] Fearful [] Anxious [] Often cries [] Exhaustion [] Unable to work [] Unable to attend mormonism [] Unable to walk/stand [] Unable to read [] Unable to drive [] Unable to eat/drink [] Unable to sleep [] Unable to be with family [] Patient intubated [] Other: Summary The export freight specialist visited the patient and prayed for her. Time spent with patient 10 min.
--- NOTE | 2019-11-23 14:03 | PC.CHAP ---
Pastoral Care Encounter/Spiritual Assessment Type of Contact [] Declined marketing manager visit [] Patient/Family/Request visit [] Outpatient visit [] Follow-up visit [] Physician referral [] Code/Alert [] Routine visit [] Staff referral [] Actively dying [] Patient sleeping [] Family support [] [] Out of room [] Palliative care [] [] Receiving care in room [] Pre-surgical visit [] Trauma [] Long length of stay [] ICU visit [] Other: Relational/Emotional Strength [] Patient feels connected with others/family/visitors/staff [] Distress [] Loneliness/isolation [] Abandonment Spirituality of Patient [] Person of Breanna [] Attends Sikh of their Breanna [] Believes in Prayer [] Reads Bible or Church materials [] There are Spiritual issues to be addressed Director Mba Interventions [] Prayer [] Active listening [] Non-anxious presence [] Spiritual/emotional support [] Crisis/trauma care [] Spiritual counseling [] Bereavement support [] Provided bereavement packet [] Provided Bible/devotional materials [] Provided toy/stuffed animal, coloring book to patient or family member [] Provided Communion [] Anointing/[place] [] Salvation [] Completed spiritual assessment [] Other: Impact on Illness or Injury [] Angry [] Fearful [] Anxious [] Often cries [] Exhaustion [] Unable to work [] Unable to attend orthodox [] Unable to walk/stand [] Unable to read [] Unable to drive [] Unable to eat/drink [] Unable to sleep [] Unable to be with family [] Patient intubated [] Other: Summary Time spent with patient
[2019-11-23 14:07] VITALS: BP 130/66; PULSE 66; RESP 22; TEMP 37.1; O2SAT 95
[2019-11-23 14:10] VITALS: BP 130/66; PULSE 66; RESP 22; TEMP 37.1; O2SAT 95
== END 2019-11-23 14:44 | disposition home or self-care (01) | DRG 690 ==
LOC: ER 21:04 → MEDSURG 22:52
PROVIDERS: Nurse Practitioner Family; Student in an Organized Health Care Education/Training Program; Admitting Provider Internal Medicine; Emergency Provider Emergency Medicine; PCP Family Medicine; Visit Provider Internal Medicine
DX: N10 Acute pyelonephritis (principal); E87.1 Hypo-osmolality and hyponatremia; G82.20 Paraplegia, unspecified; N31.9 Neuromuscular dysfunction of bladder, unspecified; K52.9 Noninfective gastroenteritis and colitis, unspecified; B96.20 Unspecified Escherichia coli [E. coli] as the cause of diseases classified elsewhere; Z90.49 Acquired absence of other specified parts of digestive tract; E86.0 Dehydration; E87.6 Hypokalemia; R33.9 Retention of urine, unspecified; Z88.0 Allergy status to penicillin; Z98.1 Arthrodesis status; F17.210 Nicotine dependence, cigarettes, uncomplicated; B19.20 Unspecified viral hepatitis C without hepatic coma; Z79.899 Other long term (current) drug therapy
CPT/HCPCS: 12345; 36415; 51702; 74177; 80053; 81001; 83605; 83690; 85025; 87040; 87077; 87086; 87186; 87205; 87493; 96365; 96372; 99282; A9270; J0696; J1650; J2543